=== PATIENT | female | born 1950 | race Caucasian/White ===

== ENCOUNTER 2021-09-11 22:21 | Emergency (ER) | payer OTHER ==
--- OUTSIDE RECORDS SUMMARY | 2021-09-11 22:28 | XMS REPORT | Continuity of Care Document ---
:1950 Author Organization [facility] t Address [facility] [place] [address] Care Team Providers Name Role Phone FAY ACUÑA Primary Care Physician Unavailable BRODY NORWOOD Attending Clinician Unavailable Yulia Christensen Attending Clinician Lab, Fam Pob I Attending Clinician Unavailable Valeriano BRYANT Attending Clinician VALERIANO Attending Clinician Unavailable Mateusz JACKSON Attending Clinician Unavailable Louise P[employer]IC [employer] FABRICATOR TRIMMER, G Attending Clinician Doctor Unassigned, Name Attending Clinician Unavailable Brody Norwood MD Attending Clinician Only, Test Attending Clinician Unavailable Pob, Lab Main Attending Clinician Unavailable Herminio Reese Attending Clinician Hannah YODER Attending Clinician Attending Clinician Unavailable Singer HEADLEY Attending Clinician BRODY NORWOOD Admitting Clinician Unavailable Brody Norwood MD Admitting Clinician Hannah YODER Admitting Clinician Admitting Clinician Unavailable Payers Payer Name Policy Type Policy Number Effective Date Expiration Date S ource CHOICE CARE [id number] 2019 00:00:00 Problems Condition Condition Condition Status Onset Resolution Last Treating Co mments Source Name Details Category Date Date Treatment Clinician Date Small Small Disease Active Univers bowel bowel 3-11 ity of [place] 00 Medical Branch Pneumonia Pneumonia Disease Active Uni vers 3-11 ity of 00:00: [place] 00 Medical Branch No known No known Disease Unive rs active active ity of problems problems [facility] Allergies, Adverse Reactions, Alerts Allergy Allergy Status Severity Reaction(s) Onset Inactive Treating Comm ents Source Name Type Date Date Clinician DAIRY DRUG Active N/V Univers DIGESTAN 3-11 ity of T 00:00: [place] 00 Medical Branch Dairy Propensi Active Nausea Univers Digestan ty to and/or 3-11 ity of t adverse Vomiting 00:00: [place] reaction 00 Medical s Branch Amoxicil Propensi Active Diarrhea 2016-10 Univ ers abel-Pot ty to 0-06 ity of Clavulan adverse 00:00: [place] ate reaction Medical s Branch AMOXICIL DRUG Active Diarrhea 2016-10 Univer s ABEL-POT 0-06 ity of CLAVULAN 00:00: [place] ATE 00 [facility] NO KNOWN Drug Active Univers ALLERGIE Class ity of S [facility] Social History Social Habit Start Date Stop Date Quantity Comments Source Exposure to Not sure [facility] SARS-CoV-2 [facility] (event) [place] Tobacco Comment currently Universit y of quitting [facility] Tobacco use and 2020-11-13 2020-11-13 Never used Universit y of exposure 00:00:00 00:00:00 [facility] Alcohol intake 2020-11-13 2020-11-13 Current University of 00:00:00 00:00:00 non-drinker of [facility] alcohol (finding) [place] Sex Ass[birth year] At [birth year] Universit y of 00:00:00 00:00:00 [facility] Smoking Status Start Date Stop Date Source Current every day smoker 2020-11-13 00:00:00 Uni versity [facility] Medications Ordered Filled Start Stop Current Ordering Indication Dosage Frequency Signature Comments Components Source Medication Medication Date Date Medication? Clinician (SIG) Name Name permethrin Yes [id number] Cover body Univers 5 % cream 7-05 with cream ity of 00:00: scalp to [place] 00 feet. Medical Leave on [place] for 12 hours, then rinse. mupirocin 2 Yes [id number] Apply to Univers % ointment 7-05 area(s) 3 ity of 00:00: (three) [place] 00 times Medical daily. Branch cephALEXin 2020-0 2020- No [id number] 500mg Take 1 Univers (KEFLEX) 04-19 07-16 capsule by ity of 500 mg 00:00: 04:59 mouth 3 [place] capsule 00 :00 (three) Medical times Branch daily for 10 days. venlafaxine 2020-0 Yes 100mg Take 100 U nivers 100 mg 9-24 mg by ity of tablet 17:11: mouth [place] 54 daily. Medical Branch tiZANidine 2020-0 Yes 4mg Take 4 mg Un alfredo 4 mg tablet 9-24 by mouth ity of 17:11: every 8 [place] 54 (eight) Medical hours as Branch needed for Pain (scale 4-6). HYDROcodone 2020-0 Yes 1{tbl} Take 1 Un alfredo -acetaminop 9-24 tablet by ity of hen 10-325 17:11: mouth [place] mg tablet 54 every 6 Medical (six) Branch hours as needed. gabapentin 2020-0 Yes 1200mg Take 1,200 Univers 300 mg 9-24 mg by ity of capsule 17:11: mouth 3 [place] 54 (three) Medical times Branch daily as needed. amitriptyli 2020-0 Yes 100mg Take 100 U nivers ne 100 mg 9-24 mg by ity of tablet 17:11: mouth at [place] [address] bedtime. Medical Branch zaleplon 5 2020-0 Yes 10mg Take 10 mg U nivers mg capsule 9-24 by mouth ity o f 17:11: at [place] [address] bedtime. Medical Branch chlordiazeP 2020-0 Yes 20mg Take 20 mg Univers OXIDE 10 mg 9-24 by mouth ity of capsule 17:11: [place]. [place] 54 [place] venlafaxine 2020-0 Yes 100mg Take 100 U nivers 100 mg 9-24 mg by ity of tablet 17:11: mouth [place] 54 daily. Medical Branch tiZANidine 2020-0 Yes 4mg Take 4 mg Un alfredo 4 mg tablet 9-24 by mouth ity of 17:11: every 8 [place] 54 (eight) Medical hours as Branch needed for Pain (scale 4-6). HYDROcodone 2020-0 Yes 1{tbl} Take 1 Un alfredo -acetaminop 9-24 tablet by ity of hen 10-325 17:11: mouth [place] mg tablet 54 every 6 Medical (six) Branch hours as needed. gabapentin 2020-0 Yes 1200mg Take 1,200 Univers 300 mg 9-24 mg by ity of capsule 17:11: mouth 3 [place] 54 (three) Medical times Branch daily as needed. amitriptyli 2020-0 Yes 100mg Take 100 U nivers ne 100 mg 9-24 mg by ity of tablet 17:11: mouth at [place] 54 bedtime. Medical Branch zaleplon 5 2020-0 Yes 10mg Take 10 mg U nivers mg capsule 9-24 by mouth ity o f 17:11: at [place] 54 bedtime. Medical Branch chlordiazeP 2020-0 Yes 20mg Take 20 mg Univers OXIDE 10 mg 9-24 by mouth ity of capsule 17:11: as needed. [place] [address] Medical Branch venlafaxine 2020-0 Yes 100mg Take 100 U nivers 100 mg 9-24 mg by ity of tablet 17:11: mouth [place] 54 daily. Medical Branch tiZANidine 2020-0 Yes 4mg Take 4 mg Un alfredo 4 mg tablet 9-24 by mouth ity of 17:11: every 8 [place] 54 (eight) Medical hours as Branch needed for Pain (scale 4-6). HYDROcodone 2020-0 Yes 1{tbl} Take 1 Un alfredo -acetaminop 9-24 tablet by ity of hen 10-325 17:11: mouth [place] mg tablet 54 every 6 Medical (six) Branch hours as needed. gabapentin 2020-0 Yes 1200mg Take 1,200 Univers 300 mg 9-24 mg by ity of capsule 17:11: mouth 3 [place] 54 (three) Medical times Branch daily as needed. amitriptyli 2020-0 Yes 100mg Take 100 U nivers ne 100 mg 9-24 mg by ity of tablet 17:11: mouth at [place] 54 bedtime. Medical Branch zaleplon 5 2020-0 Yes 10mg Take 10 mg U nivers mg capsule 9-24 by mouth ity o f 17:11: at [place] 54 bedtime. Medical Branch chlordiazeP 2020-0 Yes 20mg Take 20 mg Univers OXIDE 10 mg 9-24 by mouth ity of capsule 17:11: as needed. [place] [address] Medical Branch venlafaxine 2020-0 Yes 100mg Take 100 U nivers 100 mg 9-24 mg by ity of tablet 17:11: mouth [place] 54 daily. Medical Branch tiZANidine 2020-0 Yes 4mg Take 4 mg Un alfredo 4 mg tablet 9-24 by mouth ity of 17:11: every 8 [place] 54 (eight) Medical hours as Branch needed for Pain (scale 4-6). HYDROcodone 2020-0 Yes 1{tbl} Take 1 Un alfredo -acetaminop 9-24 tablet by ity of hen 10-325 17:11: mouth [place] mg tablet 54 every 6 Medical (six) Branch hours as needed. gabapentin 2020-0 Yes 1200mg Take 1,200 Univers 300 mg 9-24 mg by ity of capsule 17:11: mouth 3 [place] 54 (three) Medical times Branch daily as needed. amitriptyli 2020-0 Yes 100mg Take 100 U nivers ne 100 mg 9-24 mg by ity of tablet 17:11: mouth at [place] [address] bedtime. Medical Branch zaleplon 5 2020-0 Yes 10mg Take 10 mg U nivers mg capsule 9-24 by mouth ity o f 17:11: at [place] [address] bedtime. Medical Branch chlordiazeP 2020-0 Yes 20mg Take 20 mg Univers OXIDE 10 mg 9-24 by mouth ity of capsule 17:11: as needed. [facility] 54 Medical Branch venlafaxine 2020-0 Yes 100mg Take 100 U nivers 100 mg 9-24 mg by ity of tablet 17:11: mouth [place] 54 daily. Medical Branch tiZANidine 2020-0 Yes 4mg Take 4 mg Un alfredo 4 mg tablet 9-24 by mouth ity of 17:11: every 8 [place] [address] (eight) Medical hours as Branch needed for Pain (scale 4-6). HYDROcodone 2020-0 Yes 1{tbl} Take 1 Un alfredo -acetaminop 9-24 tablet by ity of hen 10-325 17:11: mouth [place] mg tablet 54 every 6 Medical (six) Branch hours as needed. gabapentin 2020-0 Yes 1200mg Take 1,200 Univers 300 mg 9-24 mg by ity of capsule 17:11: mouth 3 [place] 54 (three) Medical times Branch daily as needed. amitriptyli 2020-0 Yes 100mg Take 100 U nivers ne 100 mg 9-24 mg by ity of tablet 17:11: mouth at [place] [address] bedtime. Medical Branch zaleplon 5 2020-0 Yes 10mg Take 10 mg U nivers mg capsule 9-24 by mouth ity o f 17:11: at [place] [address] bedtime. Medical Branch chlordiazeP 2020-0 Yes 20mg Take 20 mg Univers OXIDE 10 mg 9-24 by mouth ity of capsule 17:11: as needed. [address] Branch venlafaxine 2020-0 Yes 100mg Take 100 U nivers 100 mg 9-24 mg by ity of tablet 17:11: mouth [place] 54 daily. Medical Branch tiZANidine 2020-0 Yes 4mg Take 4 mg Un alfredo 4 mg tablet 9-24 by mouth ity of 17:11: every 8 [place] 54 (eight) Medical hours as Branch needed for Pain (scale 4-6). HYDROcodone 2020-0 Yes 1{tbl} Take 1 Un alfredo -acetaminop 9-24 tablet by ity of hen 10-325 17:11: mouth [place] mg tablet 54 every 6 Medical (six) Branch hours as needed. gabapentin 2020-0 Yes 1200mg Take 1,200 Univers 300 mg 9-24 mg by ity of capsule 17:11: mouth 3 [place] 54 (three) Medical times Branch daily as needed. amitriptyli 2020-0 Yes 100mg Take 100 U nivers ne 100 mg 9-24 mg by ity of tablet 17:11: mouth at [place] 54 bedtime. Medical Branch zaleplon 5 2020-0 Yes 10mg Take 10 mg U nivers mg capsule 9-24 by mouth ity o f 17:11: at [place] [address] bedtime. Medical Branch chlordiazeP 2020-0 Yes 20mg Take 20 mg Univers OXIDE 10 mg 9-24 by mouth ity of capsule 17:11: as needed. [address] Branch dexamethaso 2020-0 Yes PRN, Univer s ne 9-24 Starting ity of (DECADRON 16:40: Ilene [place] PHOSPHATE) 00 07/09/20 at Med ical injection 1140, Branch Until Discontinu ed, Routine, Intra-op DUOVISC 2020-0 Yes PRN, Univers (DUOVISC 9-24 Starting ity of VISCO 16:39: Ilene [place] ELASTIC) 3 00 07/09/20 at Med ical %-4 %(0.5 1139, Branch mL) 1 % Until (0.55 mL) Discontinu intraocular ed, injection Routine, Intra-op EPINEPHrine 2020-0 Yes PRN, Univer s (PF) 07-09 Starting ity of 1:1,000 (1 16:25: Ilene [place] mg/mL) 00 07/09/20 at [facility] (ADRENALIN 1125, Branch (PF)) Until injection Discontinu ed, Routine, Intra-op ceFAZolin 2020-0 Yes PRN, Univers (ANCEF) 07-09 Starting ity of injection 16:05: Ilene [place] 07/09/20 at [facility] 1105, Branch Until Discontinu ed, MALISSA, Intra-op balanced 2020-0 Yes PRN, Univers salt soln 07-09 Starting ity of no.2 irrig. 16:04: Ilene [place] (BSS) 07/09/20 at [facility] ophthalmic 1104, [place] solution Until Discontinu ed, Routine, Intra-op mydriatic 2020-0 2020- No .5mL 0.5 mL, Univ ers #5 07-09 Left Eye, ity of ophthalmic 15:00: 14:52 ONCE, 1 [place] as solution 00 :00 dose, [place]ene Medica l 0.5 mL 07/09/20 at [place] syringe 1000, Routine lactated 2020-0 2020- No 1000mL at 20 Unive rs ringers IV 07-09 mL/hr, ity of infusion 15:00: 14:52 1,000 mL, Oleg[place] as 1,000 mL 00 :00 IV Medical Infusion, [place] ONCE, 1 dose, Ilene 07/09/20 at 1000, Routine, DSU Pre-op venlafaxine 2020-0 Yes 100mg Take 100 U nivers 100 mg 9-22 mg by ity of tablet 20:05: mouth [place] 23 daily. Medical Branch tiZANidine 2020-0 Yes 4mg Take 4 mg Un alfredo 4 mg tablet 9-22 by mouth ity of 20:05: every 8 [place] 23 (eight) Medical hours as Branch needed for Pain (scale 4-6). HYDROcodone 2020-0 Yes 1{tbl} Take 1 Un alfredo -acetaminop 9-22 tablet by ity of hen 10-325 20:05: mouth [place] mg tablet 23 every 6 Medical (six) Branch hours as needed. gabapentin 2020-0 Yes 1200mg Take 1,200 Univers 300 mg 9-22 mg by ity of capsule 20:05: mouth 3 [place] 23 (three) Medical times Branch daily as needed. amitriptyli 2020-0 Yes 100mg Take 100 U nivers ne 100 mg 9-22 mg by ity of tablet 20:05: mouth at [place] [address] bedtime. Medical Branch zaleplon 5 2020-0 Yes 10mg Take 10 mg U nivers mg capsule 9-22 by mouth ity o f 20:05: at [place] [address] bedtime. Medical Branch chlordiazeP 2020-0 Yes 20mg Take 20 mg Univers OXIDE 10 mg 9-22 by mouth ity of capsule 20:05: as needed. [address] Branch venlafaxine 2020-0 Yes 100mg Take 100 U nivers 100 mg 9-10 mg by ity of tablet 17:29: mouth [place] [address] daily. Medical Branch tiZANidine 2020-0 Yes 4mg Take 4 mg Un alfredo 4 mg tablet 9-10 by mouth ity of 17:29: every 8 [place] [address] (eight) Medical hours as Branch needed for Pain (scale 4-6). HYDROcodone 2020-0 Yes 1{tbl} Take 1 Un alfredo -acetaminop 9-10 tablet by ity of hen 10-325 17:29: mouth [place] mg tablet 11 every 6 Medical (six) Branch hours as needed. gabapentin 2020-0 Yes 1200mg Take 1,200 Univers 300 mg 9-10 mg by ity of capsule 17:29: mouth 3 [place] 11 (three) Medical times Branch daily as needed. amitriptyli 2020-0 Yes 100mg Take 100 U nivers ne 100 mg 9-10 mg by ity of tablet 17:29: mouth at [place] [address] bedtime. Medical Branch zaleplon 5 2020-0 Yes 10mg Take 10 mg U nivers mg capsule 9-10 by mouth ity o f 17:29: at [place] [address] bedtime. Medical Branch chlordiazeP 2020-0 Yes 20mg Take 20 mg Univers OXIDE 10 mg 9-10 by mouth ity of capsule 17:29: as needed. [address] Branch eye block 2020-0 Yes PRN, Univers syringe 11 9-10 Starting ity o f mL 16:33: Ilene [place] 00 06/25/20 at [place] [id number], Branch Until Discontinu ed, Intra-op tetracaine 2020-0 Yes PRN, Univers (PONTOCAINE 06-25 Starting ity of ) 0.5 % 16:03: Ilene [place] ophthalmic 06/25/20 at Med ical drops 1103, Branch Until Discontinu ed, Routine, Intra-op water for 2020-0 Yes PRN, Univers irrigation 06-25 Starting ity o f irrigation 16:03: Ilene [place] solution 06/25/20 at Medic al 1103, Branch Until Discontinu ed, Routine, Intra-op NaCl 0.9% 2020-0 Yes PRN, Univers (NS) - Starting ity of injection 16:03: Ilene [place] 06/25/20 at Medical 1103, Branch Until Discontinu ed, Routine, Intra-op neomycin-po 2020-0 Yes PRN, Univer s lymyxin-dex 06-25 Starting ity of amethasone 16:03: Ilene [place] (MAXITROL) 06/25/20 at [facility] ical 3.5 1103, Branch mg/g-10,000 Until unit/g-0.1 Discontinu % ed, ophthalmic Routine, ointment Intra-op gentamicin 2020-0 Yes PRN, Univers injection 06-25 Starting ity of 16:02: Ilene [place] 06/25/20 at [facility] 1102, Branch Until Discontinu ed, MALISSA, Intra-op EPINEPHrine 2020-0 Yes PRN, Univer s (PF) - Starting ity of 1:1,000 (1 16:02: Ilene [place] mg/mL) 06/25/20 at [facility] (ADRENALIN 1102, Branch (PF)) Until injection Discontinu ed, Routine, Intra-op DUOVISC 2020-0 Yes PRN, Univers (DUOVISC 06-25 Starting ity of VISCO 16:02: Ilene [place] ELASTIC) 3 06/25/20 at [facility] ica %-4 %(0.5 1102, Branch mL) 1 % Until (0.55 mL) Discontinu intraocular ed, injection Routine, Intra-op dexamethaso 2020-0 Yes PRN, Univer s ne 06-25 Starting ity of (DECADRON 16:02: Ilene [place] PHOSPHATE) 06/25/20 at [facility] ical injection 1102, Branch Until Discontinu ed, Routine, Intra-op ceFAZolin 2020-0 Yes PRN, Univers (ANCEF) 9-10 Starting ity of injection 16:02: Ilene [place] 00 06/25/20 at Medical 1102, Branch Until Discontinu ed, MALISSA, Intra-op balanced 2020-0 Yes PRN, Univers salt soln 9-10 Starting ity of no.2 irrig. 16:01: Ilene [place] (BSS) 00 06/25/20 at [facility] ophthalmic 1101, Branch solution Until Discontinu ed, Routine, Intra-op mydriatic 2020-0 2020- No .5mL 0.5 mL, Univ ers #5 06-2510 Right Eye, ity of ophthalmic 15:15: 15:07 ONCE, 1 [place] solution 00 :00 dose, [place] Medica l 0.5 mL 06/25/20 at [place] syringe 1015, Routine lactated 2020-0 2020- No 1000mL at 20 Unive rs ringers IV 06-25 09-10 mL/hr, ity of infusion 15:15: 15:07 1,000 mL, [place] as 1,000 mL 00 :00 IV Medical Infusion, [place] ONCE, 1 dose, [place] 06/25/20 at 1015, Routine, DSU Pre-op chlordiazeP 2020-0 Yes 20mg Take 20 mg Univers OXIDE 10 mg 9-08 by mouth ity of capsule 20:14: [place]. [place] Branch venlafaxine 2020-0 Yes 100mg Take 100 U nivers 100 mg 9-08 mg by ity of tablet 20:03: mouth [place] 09 daily. Medical Branch tiZANidine 2020-0 Yes 4mg Take 4 mg Un alfredo 4 mg tablet 9-08 by mouth ity of 20:03: every 8 [place] 08 (eight) Medical hours as Branch needed for Pain (scale 4-6). HYDROcodone 2020-0 Yes 1{tbl} Take 1 Un alfredo -acetaminop 9-08 tablet by ity of hen 10-325 20:03: mouth [place] mg tablet 08 every 6 Medical (six) Branch hours as needed. gabapentin 2020-0 Yes 1200mg Take 1,200 Univers 300 mg 9-08 mg by ity of capsule 20:03: mouth 3 [place] 08 (three) Medical times Branch daily as needed. amitriptyli 2020-0 Yes 100mg Take 100 U nivers ne 100 mg 9-08 mg by ity of tablet 20:03: mouth at [place] 08 bedtime. Medical Branch zaleplon 5 2020-0 Yes 10mg Take 10 mg U nivers mg capsule 9-08 by mouth ity o f 20:03: at [place] 08 bedtime. Medical Branch enoxaparin 2020-0 Yes 40mg 40 mg, Unive rs (LOVENOX) 3-12 Subcutaneo ity of injection 14:00: [place], DAILY, [place] 40 mg 00 First dose Medical on [place] Branch 12/26/19 at 0900, Until Discontinu ed, Routine cefTRIAXone 2020-0 Yes 1000mg 1,000 mg, Univers (ROCEPHIN) 3-12 IV ity of 1,000 mg in 11:11: Piggyback, [place] NaCl 0.9% 00 Q12H ABX, Medic al (NS) 50 mL First dose Bra [facility] MINI-BAG on Ilene 12/26/19 at 0615, Until Discontinu ed, 50 mL
R wesly for Anti-Infec tive: Empiric Therapy for Suspected Infection< br>Empiric Therapy Site: Urine
D uration of therapy: 72 hours venlafaxine 2020-0 Yes 100mg Take 100 U nivers 100 mg 3-12 mg by ity of tablet 05:30: mouth 3 [place] [address] (three) Medical times Branch daily. tiZANidine 2020-0 Yes 4mg Take 4 mg Un alfredo 4 mg tablet 3-12 by mouth ity of 05:30: every 8 [place] [address] (eight) Medical hours as Branch needed for Pain (scale 4-6). HYDROcodone 2020-0 Yes 1{tbl} Take 1 Un alfredo -acetaminop 3-12 tablet by ity of hen 10-325 05:30: mouth [place] mg tablet 43 every 6 Medical (six) Branch hours as needed. gabapentin 2020-0 Yes 300mg Take 300 Un alfredo 300 mg 3-12 mg by ity of capsule 05:30: mouth 3 [place] 43 (three) Medical times Branch daily as needed. amitriptyli 2020-0 Yes 100mg Take 100 U nivers ne 100 mg 3-12 mg by ity of tablet 05:30: mouth at [place] [address] bedtime. Medical Branch zaleplon 5 2020-0 Yes 10mg Take 10 mg U nivers mg capsule 3-12 by mouth ity o f 05:30: at [place] [address] bedtime. Medical Branch venlafaxine 2020-0 Yes 100mg Take 100 U nivers 100 mg 3-12 mg by ity of tablet 05:30: mouth 3 [place] 43 (three) Medical times Branch daily. tiZANidine 2020-0 Yes 4mg Take 4 mg Un alfredo 4 mg tablet 3-12 by mouth ity of 05:30: every 8 [place] 43 (eight) Medical hours as Branch needed for Pain (scale 4-6). HYDROcodone 2020-0 Yes 1{tbl} Take 1 Un alfredo -acetaminop 3-12 tablet by ity of hen 10-325 05:30: mouth [place] mg tablet 43 every 6 Medical (six) Branch hours as needed. gabapentin 2020-0 Yes 300mg Take 300 Un alfredo 300 mg 3-12 mg by ity of capsule 05:30: mouth 3 [place] 43 (three) Medical times Branch daily as needed. amitriptyli 2020-0 Yes 100mg Take 100 U nivers ne 100 mg 3-12 mg by ity of tablet 05:30: mouth at [place] [address] bedtime. Medical Branch zaleplon 5 2020-0 Yes 10mg Take 10 mg U nivers mg capsule 3-12 by mouth ity o f 05:30: at [place] [address] bedtime. Medical Branch venlafaxine 2020-0 Yes 100mg Take 100 U nivers 100 mg 3-12 mg by ity of tablet 05:30: mouth 3 [place] 43 (three) Medical times Branch daily. tiZANidine 2020-0 Yes 4mg Take 4 mg Un alfredo 4 mg tablet 3-12 by mouth ity of 05:30: every 8 [place] [address] (eight) Medical hours as Branch needed for Pain (scale 4-6). HYDROcodone 2020-0 Yes 1{tbl} Take 1 Un alfredo -acetaminop 3-12 tablet by ity of hen 10-325 05:30: mouth [place] mg tablet 43 every 6 Medical (six) Branch hours as needed. gabapentin 2020-0 Yes 300mg Take 300 Un alfredo 300 mg 3-12 mg by ity of capsule 05:30: mouth 3 [place] 43 (three) Medical times Branch daily as needed. amitriptyli 2020-0 Yes 100mg Take 100 U nivers ne 100 mg 3-12 mg by ity of tablet 05:30: mouth at [place] [address] bedtime. Medical Branch zaleplon 5 2020-0 Yes 10mg Take 10 mg U nivers mg capsule 3-12 by mouth ity o f 05:30: at [place] [address] bedtime. Medical Branch D5W 0.45% 2020-0 Yes 1000mL at 100 Univ ers NaCl 3-12 mL/hr, ity of (1/2NS) IV 04:45: 1,000 mL, [place] infusion 00 IV Medical 1,000 mL Infusion, Branch CONTINUOUS , Starting Mon12/25/19 at 2345, Until Discontinu ed, Routine pantoprazol 2020-0 Yes 40mg 40 mg, IV U nivers e 3-12 Piggyback, ity of (PROTONIX) 03:30: Q12H, [place] 40 mg in 00 First dose Medic al NaCl 0.9% on Mon Branch (NS) 100 mL 12/25/19 at MINI-BAG 2230, Until Discontinu ed, 100 mL haloperidol 2019-0 Yes 2.5mg 2.5 mg, Un alfredo lactate 312 Slow IV ity of (HALDOL) 03:28: Push, [place] injection 03 QHSPRN, Medical 2.5 mg Starting Branch Mon12/25/19 at 2228, Until Discontinu ed, Routine, sleep azithromyci 2019-0 Yes 500mg 500 mg, IV Univers n 3-12 Piggyback, ity of (ZITHROMAX) 00:15: Q24H ABX, [place] 500 mg in 00 First dose Medi derrick NaCl 0.9% on Mon Branch (NS) 250 mL 12/25/19 at VIAL-MATE 1915, IV Until piggyback Discontinu ed, 250 mL
R wesly for Anti-Infec tive: Empiric Therapy for Suspected Infection< br>Empiric Therapy Site: Respirator y
Durat ion of therapy: 7 days cefTRIAXone 2020-0 2020- No 1000mg 1,000 mg, Univers (ROCEPHIN) 12 -12 IV ity of 1,000 mg in 00:15: 03:36 Piggyback, [place] NaCl 0.9% 00 :48 Q24H ABX, Medic al (NS) 50 mL First dose Bra nch MINI-BAG on Mon20 at 1915, Until Discontinu ed, 50 mL
R wesly for Anti-Infec tive: Empiric Therapy for Suspected Infection< br>Empiric Therapy Site: Urine
D uration of therapy: 72 hours NaCl 0.45% 2020- No 1000mL at 100 Un alfredo (1/2NS) IV 12-2412 mL/hr, ity of infusion 23:45: 03:37 1,000 mL, [place] as 1,000 mL 00 :05 IV Medical Infusion, Branch CONTINUOUS , Starting [facility] 12/25/19 at 1845, Until [facility] 12/25/19 at 2237, Routine SOMA 350 MG 2020- No TID Unive rs ORAL TAB 12-24 ity of 22:44: 00:00 [place] 38 :00 [facility] VICODIN ES 2020- No TID Univer s 7.5-750 MG 12-24 ity of ORAL TAB 22:44: 00:00 [place] 38 :00 [facility] ondansetron Yes 4mg 4 mg, Slow Univers (ZOFRAN 12-24 IV Push, ity of (PF)) 22:17: [place], [place] injection 4 41 Starting Medi derrick mg [facility] 12/25/19 at 1717, Until Discontinu ed, Routine, Nausea and Vomiting (N/V) morpHINE 2019- No 2mg 2 mg, Slow Un alfredo injection 2 12-24 IV Push, ity of mg 22:17: 22:16 [place]PRNCrescent [place], [place] 34 :34 Starting Medical [facility] 12/25/19 at 1717, Until Ilene 12/26/19 at 1716, Routine, Pain (scale 7-10) LORazepam 2020- No 1mg 1 mg, Slow U nivers (ATIVAN) 12-24 IV Push, ity of injection 1 22:00: 20:58 ONCE, 1 [place] mg 00 :00 dose, [facility] Medical 12/25/19 at Branch 1700, STAT proMETHazin 0 2020- No 25mg 25 mg, IV Univers e 12-24 Piggyback, ity of (PHENERGAN) 21:00: 19:54 ONCE, 1 [place] 25 mg in 00 :00 dose, Wed Medica l NaCl 0.9% 12/25/19 at Bran ch (NS) 50 mL 1600, 50 piggyback mL iohexol 2020-0 2020- No 120mL 120 mL, Unive rs (OMNIPAQUE 12-24 Intravenou it y of 350 19:00: 18:55 s, ONCE, 1 [place] BULK-150 00 :00 dose, Wed Medica l mL) 12/25/19 at Branch injection 1400, 120 mL Routine ondansetron 0 2020- No 4mg 4 mg, Slow Univers (ZOFRAN 12-24 IV Push, ity of (PF)) 19:00: 18:30 ONCE, 1 [place] injection 4 00 :00 dose, Wed Med ical mg 12/25/19 at Branch 1400, MALISSA NaCl 0.9% 2019-0 2020- No 1000mL at 999 Uni vers (NS) bolus 12-24 mL/hr, ity of infusion 18:00: 20:48 1,000 mL, Oleg[place] as 1,000 mL 00 :00 IV Medical Infusion, Branch ONCE, 1 dose, 12/25/19 at 1300, MALISSA dexamethaso 2019-0 2020- No 10mg 10 mg, Uni vers ne 12-2310 Oral, ity of (DECADRON 17:15: 16:30 ONCE, 1 [place] PHOSPHATE) 00 :00 dose, Tue Medi derrick injection 12/24/19 at [facility] ch 10 mg 1215, Routine ondansetron Yes [id number] 4mg Take 1 Univers (ZOFRAN 6-29 tablet by ity of ODT) 4 mg 00:00: mouth [place] disintegrat 00 every 8 Medic al ing tablet (eight) Branch hours as needed for Nausea and Vomiting (N/V). ondansetron Yes [id number] 4mg Take 1 Univers (ZOFRAN 6-29 tablet by ity of ODT) 4 mg 00:00: mouth [place] disintegrat 00 every 8 Medic al ing tablet (eight) Branch hours as needed for Nausea and Vomiting (N/V). ondansetron Yes [id number] 4mg Take 1 Univers (ZOFRAN 6-29 tablet by ity of ODT) 4 mg 00:00: mouth [place] disintegrat 00 every 8 Medic al ing tablet (eight) Branch hours as needed for Nausea and Vomiting (N/V). ondansetron 2019-0 Yes [id number] 4mg Take 1 Univers (ZOFRAN 6-29 tablet by ity of ODT) 4 mg 00:00: mouth [place] disintegrat 00 every 8 Medic al ing tablet (eight) Branch hours as needed for Nausea and Vomiting (N/V). ondansetron 2018-0 2020- No [id number] 4mg Take 1 Univers (ZOFRAN 6-29 03-11 tablet by ity of ODT) 4 mg 00:00: 00:00 mouth [place] disintegrat 00 :00 every 8 Medic al ing tablet (eight) Branch hours as needed for Nausea and Vomiting (N/V). proMETHazin 2019-0 Yes [id number] 25mg Take 1 Univers e 25 mg 2-16 tablet by ity of tablet 00:00: mouth [place] 00 every 6 Medical (six) Branch hours as needed for Nausea and Vomiting (N/V). proMETHazin 2019-0 Yes [id number] 25mg Take 1 Univers e 25 mg 2-16 tablet by ity of tablet 00:00: mouth [place] 00 every 6 Medical (six) Branch hours as needed for Nausea and Vomiting (N/V). proMETHazin 2019-0 Yes [id number] 25mg Take 1 Univers e 25 mg 2-16 tablet by ity of tablet 00:00: mouth [place] 00 every 6 Medical (six) Branch hours as needed for Nausea and Vomiting (N/V). proMETHazin 2019-0 Yes [id number] 25mg Take 1 Univers e 25 mg 2-16 tablet by ity of tablet 00:00: mouth [place] 00 every 6 Medical (six) Branch hours as needed for Nausea and Vomiting (N/V). proMETHazin 2019-0 Yes [id number] 25mg Take 1 Univers e 25 mg 2-16 tablet by ity of tablet 00:00: mouth [place] 00 every 6 Medical (six) Branch hours as needed for Nausea and Vomiting (N/V). proMETHazin 2019-0 Yes [id number] 25mg Take 1 Univers e 25 mg 2-16 tablet by ity of tablet 00:00: mouth [place] 00 every 6 Medical (six) Branch hours as needed for Nausea and Vomiting (N/V). proMETHazin 2019-0 Yes [id number] 25mg Take 1 Univers e 25 mg 2-16 tablet by ity of tablet 00:00: mouth [place] 00 every 6 Medical (six) Branch hours as needed for Nausea and Vomiting (N/V). proMETHazin 2019-0 Yes [id number] 25mg Take 1 Univers e 25 mg 2-16 tablet by ity of tablet 00:00: mouth [place] 00 every 6 Medical (six) Branch hours as needed for Nausea and Vomiting (N/V). proMETHazin 2019-0 Yes [id number] 25mg Take 1 Univers e 25 mg 2-16 tablet by ity of tablet 00:00: mouth [place] 00 every 6 Medical (six) Branch hours as needed for Nausea and Vomiting (N/V). proMETHazin 2019-0 Yes [id number] 25mg Take 1 Univers e 25 mg 2-16 tablet by ity of tablet 00:00: mouth [place] 00 every 6 Medical (six) Branch hours as needed for Nausea and Vomiting (N/V). proMETHazin 2019-0 Yes [id number] 25mg Take 1 Univers e 25 mg 2-16 tablet by ity of tablet 00:00: mouth [place] 00 every 6 Medical (six) Branch hours as needed for Nausea and Vomiting (N/V). proMETHazin 2019-0 Yes [id number] 25mg Take 1 Univers e 25 mg 2-16 tablet by ity of tablet 00:00: mouth [place] 00 every 6 Medical (six) Branch hours as needed for Nausea and Vomiting (N/V). phenazopyri 2019-0 Yes [id number] 200mg Take 1 Univers dine 200 mg 2-16 tablet by ity of tablet 00:00: mouth 3 [place] 00 (three) Medical times Branch daily. proMETHazin 2019-0 Yes [id number] 25mg Take 1 Univers e 25 mg 2-16 tablet by ity of tablet 00:00: mouth [place] 00 every 6 Medical (six) Branch hours as needed for Nausea and Vomiting (N/V). phenazopyri 2019-0 Yes [id number] 200mg Take 1 Univers dine 200 mg 2-16 tablet by ity of tablet 00:00: mouth 3 [place] 00 (three) Medical times Branch daily. proMETHazin 2019-0 Yes [id number] 25mg Take 1 Univers e 25 mg 2-16 tablet by ity of tablet 00:00: mouth [place] 00 every 6 Medical (six) Branch hours as needed for Nausea and Vomiting (N/V). phenazopyri 2019-0 Yes [id number] 200mg Take 1 Univers dine 200 mg 2-16 tablet by ity of tablet 00:00: mouth 3 [place] 00 (three) Medical times Branch daily. proMETHazin 2019-0 Yes [id number] 25mg Take 1 Univers e 25 mg 2-16 tablet by ity of tablet 00:00: mouth [place] 00 every 6 Medical (six) Branch hours as needed for Nausea and Vomiting (N/V). phenazopyri 2019-0 Yes [id number] 200mg Take 1 Univers dine 200 mg 2-16 tablet by ity of tablet 00:00: mouth 3 [place] 00 (three) Medical times Branch daily. proMETHazin 2019-0 Yes [id number] 25mg Take 1 Univers e 25 mg 2-16 tablet by ity of tablet 00:00: mouth [place] 00 every 6 Medical (six) Branch hours as needed for Nausea and Vomiting (N/V). phenazopyri 2019-0 2020- No [id number] 200mg Take 1 Univers dine 200 mg 2-16 03-11 tablet by it y of tablet 00:00: 00:00 mouth 3 [place] 00 :00 (three) Medical times Branch daily. VICODIN ES 2018-0 Yes TID Univers 7.5-750 MG 3-18 ity of ORAL TAB 06:32: [address] SOMA 350 MG 2018-0 Yes TID Univer s ORAL TAB 3-18 ity of 06:32: [address] venlafaxine 2017-0 Yes 100mg Take 100 U nivers 100 mg 3-18 mg by ity of tablet 06:32: mouth 3 [place] [address] (three) Medical times Branch daily. VICODIN ES 2018-0 Yes TID Univers 7.5-750 MG 3-18 ity of ORAL TAB 06:32: [address] Branch SOMA 350 MG 2018-0 Yes TID Univer s ORAL TAB 3-18 ity of 06:32: [address] venlafaxine 2018-0 Yes 100mg Take 100 U nivers 100 mg 3-18 mg by ity of tablet 06:32: mouth 3 [place] [address] (three) Medical times Branch daily. VICODIN ES 2018-0 Yes TID Univers 7.5-750 MG 3-18 ity of ORAL TAB 06:32: [address] SOMA 350 MG Yes TID Univer s ORAL TAB 3-18 ity of 06:32: [address] venlafaxine Yes 100mg Take 100 U nivers 100 mg 3-18 mg by ity of tablet 06:32: mouth 3 [place] [address] (three) Medical times [place] daily. VICODIN ES Yes TID Univers 7.5-750 MG 3-18 ity of ORAL TAB 06:32: [address] SOMA 350 MG Yes TID Univer s ORAL TAB 3-18 ity of 06:32: [address] venlafaxine Yes 100mg Take 100 U nivers 100 mg 3-18 mg by ity of tablet 06:32: mouth 3 [place] [address] (three) Medical times [place] daily. Immunizations Ordered Filled Immunization Date Status Comments [facility] e Immunization Name Name SARS-COV-2 COVID-19 2021-02-01 Completed Unive rsity of MODERNA VACCINE 00:00:00 [facility] SARS-COV-2 COVID-19 2021-02-01 Completed Unive rsity of MODERNA VACCINE 00:00:00 [facility] SARS-COV-2 COVID-19 2021-02-01 Completed Unive rsity of MODERNA VACCINE 00:00:00 [facility] Vital Signs Vital Name Observation Time Observation Value Comments Source Systolic blood 2021-04-19 20:07:00 125 mm[Hg] Univer sity of pressure [facility] Diastolic blood 2021-04-19 20:07:00 74 mm[Hg] Unive rsity of pressure [facility] Heart rate 2021-04-19 20:07:00 73 /min [facility] Body temperature 2021-04-19 20:07:00 36.94 Ragini [facility] Respiratory rate 2021-04-19 20:07:00 16 /min [facility] Body weight 2021-04-19 20:07:00 74.39 kg [facility] BMI 2021-04-19 20:07:00 26.47 kg/m2 [facility] Oxygen saturation in 2021-04-19 20:07:00 99 /min University of Arterial blood by [facility] derrick Pulse oximetry Branch Systolic blood 2020-11-13 05:14:00 141 mm[Hg] Univer sity of pressure [place] [facility] Diastolic blood 2020-11-13 05:14:00 51 mm[Hg] Unive rsity of pressure [place] [facility] Heart rate 2020-11-13 05:14:00 57 /min Universi ty of [place] [facility] Respiratory rate 2020-11-13 05:14:00 19 /min Univ ersity of [place] [facility] Oxygen saturation in 2020-11-13 05:14:00 97 /min University of Arterial blood by [facility] Pulse oximetry Branch Body temperature 2020-11-13 02:49:00 36.11 Ragini Univ ersity of [place] [facility] Body height 2020-11-13 02:49:00 167.6 cm Universi ty [facility] [place] [facility] Body weight 2020-11-13 02:49:00 74.39 kg Universi ty [facility] [place] [facility] BMI 2020-11-13 02:49:00 26.47 kg/m2 Universi ty [facility] [place] [facility] Systolic blood 2020-07-09 17:05:00 145 mm[Hg] Univer sity of pressure [place] [facility] Diastolic blood 2020-07-09 17:05:00 65 mm[Hg] Unive rsity of pressure [place] [facility] Heart rate 2020-07-09 17:05:00 58 /min Universi ty [facility] [place] [facility] Respiratory rate 2020-07-09 17:05:00 15 /min Univ ersity of [place] [facility] Oxygen saturation in 2020-07-09 17:05:00 96 /min University of Arterial blood by [facility] Pulse oximetry Branch Body temperature 2020-07-09 16:45:00 36.33 Ragini Univ ersity of [place] [facility] Body height 2020-07-07 20:00:00 167.6 cm Universi ty [facility] [place] [facility] Body weight 2020-07-07 20:00:00 70.308 kg Universi ty [facility] [place] [facility] BMI 2020-07-07 20:00:00 25.02 kg/m2 Universi ty [facility] [place] [facility] Systolic blood 2020-06-25 17:05:00 153 mm[Hg] Univer sity of pressure [place] [facility] Diastolic blood 2020-06-25 17:05:00 65 mm[Hg] Unive rsity of pressure [place] [facility] Heart rate 2020-06-25 17:05:00 60 /min Universi ty [facility] [place] [facility] Respiratory rate 2020-06-25 17:05:00 19 /min Univ ersity of [place] [facility] Oxygen saturation in 2020-06-25 17:05:00 97 /min University of Arterial blood by [facility] Pulse oximetry Branch Body temperature 2020-06-25 16:50:00 36.89 Ragini Univ ersity of [place] [facility] Body height 2020-06-23 20:15:00 167.6 cm Universi ty [facility] [place] [facility] Body weight 2020-06-23 20:15:00 70.761 kg Universi ty [facility] [place] [facility] BMI 2020-06-23 20:15:00 25.18 kg/m2 Universi ty [facility] [place] [facility] Systolic blood 2019-12-26 00:56:00 148 mm[Hg] Univer sity of pressure [place] [facility] Diastolic blood 2019-12-26 00:56:00 60 mm[Hg] Unive rsity of pressure [place] [facility] Heart rate 2019-12-26 00:56:00 79 /min Universi ty [facility] [place] [facility] Body temperature 2019-12-26 00:56:00 37.28 Ragini Univ ersity [facility] [place] [facility] Respiratory rate 2019-12-26 00:56:00 18 /min Univ ersity of [place] [facility] Oxygen saturation in 2019-12-26 00:56:00 97 /min University of Arterial blood by [facility] Pulse oximetry Branch Body height 2019-12-25 23:01:00 167.6 cm Universi ty [facility] [place] [facility] Body weight 2019-12-25 23:01:00 73.982 kg Universi ty [facility] [place] [facility] BMI 2019-12-25 23:01:00 26.33 kg/m2 [facility]i [facility] [place] [facility] Systolic blood 2019-12-24 14:16:00 146 mm[Hg] Univer sity of pressure [place] [facility] Diastolic blood 2019-12-24 14:16:00 74 mm[Hg] Unive rsity of pressure [place] [facility] Heart rate 2019-12-24 14:16:00 62 /min Universi ty [facility] [place] [facility] Body temperature 2019-12-24 14:16:00 36.89 Ragini Univ ersity [facility] [place] [facility] Respiratory rate 2019-12-24 14:16:00 18 /min [facility] Oxygen saturation in 2019-12-24 14:16:00 97 /min [facility] Arterial blood by [facility] Pulse oximetry [place] Body height 2019-12-24 14:06:00 167.6 cm [facility] Body weight 2019-12-24 14:06:00 73.483 kg [facility] BMI 2019-12-24 14:06:00 26.15 kg/m2 [facility] Procedures Procedure Date / Time Performing Clinician Source Performed CONSENT/REFUSAL FOR 2021-04-19 19:43:58 Doctor Unassigned, No Un iversity [facility] DIAGNOSIS AND TREATMENT [facility] Medical [place] XR CERVICAL SPINE 2 VW 2020-11-13 04:10:28 Megan Alejo [facility] XR SPINE THORACIC 2 VW 2020-11-13 04:10:28 Megan Alejo [facility] XR SHOULDER <2 VW RIGHT 2020-11-13 04:10:28 Megan Alejo [facility] CT HEAD WO CONTRAST 2020-11-13 04:09:43 Megan Alejo [facility] NOTICE OF PRIVACY 2020-11-13 02:38:03 Doctor Unassigned, No [facility] PRACTICES [facility] CONSENT/REFUSAL FOR 2020-11-13 02:33:26 Doctor Unassigned, No Un iversity of [place] DIAGNOSIS AND TREATMENT [facility] CONSENT/REFUSAL FOR 2020-07-08 15:25:55 Doctor Unassigned, No Un iversity of [place] DIAGNOSIS AND TREATMENT [facility] ASSIGNMENT OF BENEFITS 2020-07-08 15:25:34 Doctor Unassigned, No [facility] CBC WITH DIFF 2020-06-19 16:37:00 Deepak [facility] ASSIGNMENT OF BENEFITS 2020-06-19 16:22:24 Doctor Unassigned, No [facility] XR KUB 2019-12-25 23:29:25 Mohit Billings [facility] URINALYSIS 2019-12-25 20:46:00 Woo Carter [facility] [place] [facility] CT ABDOMEN PELVIS W 2019-12-25 18:52:52 Woo Carter [facility] CONTRAST Medical Branch LIPASE 2019-12-25 18:10:00 Woo Carter [facility] [place] [facility] MAGNESIUM 2019-12-25 18:10:00 Federico Mohit [facility] TROPONIN I 2019-12-25 18:10:00 Woo Carter [facility] [place] [facility] THYROID STIMULATING 2019-12-25 18:10:00 [facility] COMP. METABOLIC PANEL 2019-12-25 18:10:00 Woo Carter [facility] ([id number]) Medical Branch LIPID PANEL 2019-12-25 18:10:00 Federico [facility] ([id number])(TOTAL Medical Branch CHOLESTEROL, TRIGLYCERIDES, HDL) CBC WITH DIFFERENTIAL 2019-12-25 18:10:00 Woo Carter [facility] EKG-12 LEAD 2019-12-25 17:59:45 Woo Carter [facility] [place] [facility] CONSENT/REFUSAL FOR 2019-12-25 17:01:26 Doctor [facility]igned, [facility] Name Medical Branch CT HEAD WO CONTRAST 2019-12-24 15:28:52 Vilma Baeza [facility] COMP. METABOLIC PANEL 2019-12-24 15:06:00 Vilma [facility] ([id number]) [facility] CBC WITH DIFFERENTIAL 2019-12-24 15:06:00 Vilma Baeza [facility] URINALYSIS 2019-12-24 15:06:00 Singer [facility] o f [facility] NOTICE OF PRIVACY 2019-12-24 13:47:28 Doctor Unassigned, No [facility] PRACTICES Name [facility] Branch CONSENT/REFUSAL FOR 2019-12-24 13:47:14 [facility] Name Medical Branch ASSIGNMENT OF BENEFITS 2019-05-23 14:28:09 Doctor Unassigned, No [facility] Encounters Start End Encounter Admission Attending Care Care Encounter Source Date/Time Date/Time Type Type Clinicians Facility Department ID 2021-08-16 Emergency [facility] [id number] Univers 06:03:13 ity of [facility] 2021-08-14 Emergency [facility] [id number] Univers 20:27:24 ity of [facility] 2021-08-13 Outpatient R ENMA [facility] EVA [id number] Univers 18:08:02 DEEPAK ity [facility] 2021-08-13 Outpatient ENMA [facility] [id number] Univers 14:36:12 DEEPAK ity [facility] 2021-08-12 Emergency [facility] [id number] Univers 13:49:40 ity of [facility] 2021-04-19 2021-04-19 Emergency Umberto Rainey [facility] [id number] Univers 15:10:00 16:42:00 Yulia [place] [id number] i ty [facility] [id number] [place] [facility] [id number] [place] [id number] [place] 2021-03-30 2021-03-30 Laboratory Lab, Adc Fam Pob I [facility] 1.2. [id number] Univers 16:17:34 16:37:34 [facility] [id number] ity [facility] [id number] Olegario as Professio [id number] Ms dical [facility] 044 Branch Office [address] 2021-03-30 2021-03-30 Outpatient R [facility] [id number] Univers 16:20:00 16:20:00 [id number] ity [facility] 2021-03-30 2021-03-30 [facility] [id number] Univers 16:20:00 16:20:00 DILCIA ity [facility] 2021-03-01 2021-03-01 Outpatient [facility] [id number] Univers 09:20:00 09:20:00 ity [facility] 2021-02-01 2021-02-01 Outpatient R RENETTA [facility] [id number] Univers 09:20:00 09:20:00 INDIRA ity [facility] 2020-11-12 2020-11-12 Emergency [facility] [id number] Univers 20:58:00 23:21:00 Megan [place] [id number] ity of [place] [id number] [place] [id number] [facility] 084 Branch 2020-11-12 2020-11-12 Orders Doctor CHAGO 1.2.840.114 [id number] Univers 00:00:00 00:00:00 Only Unassigned, SUSANNA [id number] ity of [place] [facility] [id number] Olegario as [id number] [facility] 009 Branch 2020-07-09 2020-07-09 [facility] [id number] Univers 09:09:00 12:08:00 Encounter Deepak [place] [id number] ity of [place] [id number] [place] [id number] [address] 2020-07-08 2020-07-08 Laboratory Only, Adc Test [facility] 1.2.840. 114 [id number] Univers 10:22:32 10:37:32 Only Deepak [place] 350.1.1 3.10 ity of [id number] [place] [id number] [facility] 353 Branch 2020-07-08 2020-07-08 Outpatient R [facility] [id number] Univers 10:15:00 10:15:00 [id number] ity of [facility] 2020-07-08 2020-07-08 Outpatient R [facility] [id number] Univers 10:15:00 10:15:00 DEEPAK ity of [facility] 2020-06-25 2020-06-25 [facility] [id number] Univers 09:56:00 12:20:00 Encounter Deepak [place] [id number] ity of [place] [id number] [place] [id number] Med [address] 2020-06-24 2020-06-24 Outpatient R [facility] [id number] Univers 09:30:00 09:30:00 ity of [facility] 2020-06-24 2020-06-24 Laboratory Only, Adc Test [facility] 1.2.840. 114 [id number] Univers 09:11:40 09:26:40 Only Enma Deepak [place] 350.1.1 3.10 ity of [place] [id number] [place] [id number] [address] 2020-06-24 2020-06-24 Outpatient R [facility] [id number] Univers 09:00:00 09:00:00 ity of [facility] 2020-06-19 2020-06-[address] Reporter Joseluis, Adc Lab Main [facility] 1.2.8 [id number] [id number] Univers 11:23:38 11:38:38 Visit Deepak [place] 350.1.1 3.10 ity of [place] [id number] [facility] [id number] Ms dic[address] 2020-06-19 2020-06-19 Outpatient R [facility] [id number] Univers 11:15:00 11:15:00 ity of [facility] 2020-06-19 2020-06-19 Outpatient R ENMA [facility] [id number] Univers 11:15:00 11:15:00 DEEPAK ity [facility] 2020-06-19 2020-06-19 Orders Doctor ANDERS 1.2.840.114 [id number] Univers 00:00:00 00:00:00 Only Unassigned, SUSANNA [id number] ity of [place] [facility] 4.2.7.2.686 Olegario as [id number] [facility] 009 Branch 2020-06-18 2020-06-18 Outpatient R [facility] [id number] Univers 15:45:00 15:45:00 ity of [facility] 2019-12-25 2019-12-26 [facility] Woo Carter [facility] 1.2.840. 114 [id number] Univers 12:34:19 00:15:00 Encounter Micah Young [id number] ity of [place] [id number] [facility] [id number] [facility] 081 Branch 2019-12-25 2019-12-25 Orders Doctor CHAGO 1.2.840.114 [id number] Univers 00:00:00 00:00:00 Only Unassigned, SUSANNA [id number] ity of [place] [facility] 4.2.7.2.686 Olegario as [id number] [place] [address] Branch 2019-12-24 2019-12-24 Emergency X BAEZA, [facility] ERT [id number] Univers 09:08:43 12:00:00 VILMA garcia of [facility] 2019-12-24 2019-12-24 [facility] [id number] Univers 09:08:43 12:00:00 Vilma La 350.1.13.10 i ty [facility] [id number] [facility] [id number] [facility] 084 Branch 2019-12-24 2019-12-24 Orders Doctor CHAGO 1.2.840.114 [id number] Univers 00:00:00 00:00:00 Only Unassigned, SUSANNA [id number] ity of [place] [facility] 4.2.7.2.686 Olegario as [id number] [place] [address] Branch 2019-05-23 2019-05-23 Orders Doctor CHAGO 1.2.840.114 [id number] Univers 00:00:00 00:00:00 Only Unassigned, SUSANNA [id number] ity of [place] [facility] [id number] Olegario as [id number] [place] [address] Branch Results Test Test Test Results Result Source Description Time Comments Comments XR CERVICAL 2020-10- Impression: 1. Universit y of SPINE 2 VW 29 Degenerative changes.2. [place] [facility] 04:58:08 No fractures are Branch identified.3. Alignment at the cervicothoracic junction cannot be assessed due tooverlying structures. RL: 460 End of Report Ordering Physician: MAIA Vasquez DREVER History: ?Fall. Technique: Cervical spine, 2 views Comparison: Correlation is made with an MRI of the cervical spine performedOctober 16 2019. Findings: ? 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 There is mild degenerative retrolisthesis of C3. Thecervicothoracic junction is obscured by overlying structures in the lateralprojection and alignment at this level cannot be assessed. No fractures areidentified. The included portions of the lungs are clear. 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 There is mild degenerative retrolisthesis of C3. Thecervicothoracic junction is obscured by overlying structures in the lateralprojection and alignment at this level cannot be assessed. No fractures areidentified. The included portions of the lungs are clear.IMPRESSIONImpressio n:1. Degenerative changes.2. No fractures are identified.3. Alignment at the cervicothoracic junction cannot be assessed due tooverlying structures.RL: 460End of Report SHOULDER <2 2020-10- Impression: Mild Univ ersity of VW RIGHT 29 degenerative changes, Olegario as Medical 04:54:45 with no acute abnormality Branch is evident. RL: 460 End of Report Ordering Physician: MAIA ALEJO History: ?Fall. Technique: Right shoulder, 2 views Comparison: None Findings: ? No fractures are identified. There is periarticular osteophyte formation ofthe acromioclavicular and glenohumeral joints and narrowing of theacromioclavicular joint. No abnormal periarticular soft tissues areunremarkable. The right lung is clear. [facility], Radiant Results Inft User - 11/12/2020 10:55 PM CSTOrdering Physician: MEGAN Vasquez DREVERHistory: Fall.Technique: Right shoulder, 2 viewsComparison: NoneFindings: No fractures are identified. There is periarticular osteophyte formation ofthe acromioclavicular and glenohumeral joints and narrowing of theacromioclavicular joint. No abnormal periarticular soft tissues areunremarkable. The right lung is clear.IMPRESSIONImpressio n:Mild degenerative changes, with no acute abnormality is evident.RL: 460End of Report SPINE 2020-10- Impression: 1. Mild Unive rsity of THORACIC 2 VW 29 degenerative changes.2. [facility] 04:51:21 Minimal anterior wedging Branch of a thoracic vertebral body, likely T8, couldbe physiologic. Consider MRI if there is continued clinical suspicion forfracture. RL: 460 End of Report Ordering Physician: MAIA ALEJO History: ?Fall. Technique: Thoracic spine, 2 views Comparison: None Findings: ? There is mild degenerative spondylosis. There is minimal anterior wedgingof a midthoracic vertebral body, likely T8. Vertebral body heights areotherwise preserved. Vertebral alignment is within normal limits. Theincluded portions of the lungs are clear. [facility], Radiant Results Inft User - 11/12/2020 10:52 PM CSTOrdering Physician: MEGAN Vasquez DREVERHistory: Fall.Technique: Thoracic spine, 2 views Comparison: NoneFindings: There is mild degenerative spondylosis. There is minimal anterior wedgingof a midthoracic vertebral body, likely T8. Vertebral body heights areotherwise preserved. Vertebral alignment is within normal limits. Theincluded portions of the lungs are clear.IMPRESSIONImpressio n:1. Mild degenerative changes.2. Minimal anterior wedging of a thoracic vertebral body, likely T8, couldbe physiologic. Consider MRI if there is continued clinical suspicion forfracture.RL: 460End of Report HEAD WO 2020-10- No acute intracranial Un iversity of CONTRAST 29 abnormality. Preliminary [facility] 04:48:11 Report Dictated by Branch Resident: J Luis Weber MD., have reviewed this study and agree with the abovereport. EXAM: CT HEAD WITHOUT CONTRAST HISTORY: Head trauma, minor (Age >= 65y) COMPARISON: 12/24/2019 TECHNIQUE: Routine CT head without contrast. 2.5 mm slices obtained.Coronal sagittal constructions performed. FINDINGS: The ventricles and cerebral sulci are appropriate for age. Nohydrocephalus, midline shift or pathological extra-axial fluid collectionis present. The basal cisterns are unremarkable. There is no acute intracranial hemorrhage or significant mass effect. Noabnormal parenchymal attenuation abnormality. Nonspecific basal gangliacalcifications are noted. The uribe-white matter differentiation ispreserved. The mastoid air cells and paranasal air sinuses are clear. The calvariumand central skull base are unremarkable. [facility], Radiant Results Inft User - 11/12/2020 10:49 PM CSTEXAM: CT HEAD WITHOUT CONTRASTHISTORY: Head trauma, minor (Age >= 65y) COMPARISON: 12/24/2019TECHNIQUE: Routine CT head without contrast. 2.5 mm slices obtained.Coronal sagittal constructions performed.FINDINGS:The ventricles and cerebral sulci are appropriate for age. Nohydrocephalus, midline shift or pathological extra-axial fluid collectionis present. The basal cisterns are unremarkable.There is no acute intracranial hemorrhage or significant mass effect. Noabnormal parenchymal attenuation abnormality. Nonspecific basal gangliacalcifications are noted. The uribe-white matter differentiation ispreserved.The mastoid air cells and paranasal air sinuses are clear. The calvariumand central skull base are unremarkable.IMPRESSIONNo acute intracranial abnormality.Preliminary Report Dictated by Resident: J Luis Damon MD., have reviewed this study and agree with the abovereport. CBC WITH DIFF 2020-06-19 16:46:00 Test Item Value Reference Range Interpretation Comme nts WBC (test code = 6690-2) See_Comment [A utomated message] The system which XIHA nerated this result transmit marika reference range: 4.30 - 1 1.10 10*3/?L. The reference r miguel was not used to interpr et this result as normal/abnor mal. RBC (test code = 789-8) See_Comment [Au tomated message] The system which XIHA nerated this result transmit marika reference range: 3.93 - 5 .25 10*6/?L. The reference r miguel was not used to interpr et this result as normal/abnor mal. HGB (test code = 718-7) 12.5 g/dL 11.6-15 HCT (test code = 4544-3) 40.0 % 35.7-45.2 MCV (test code = 787-2) 92.6 fL 80.6-95.5 MCH (test code = 785-6) 28.9 pg 25.9-32.8 MCHC (test code = 786-4) 31.3 g/dL 31.6-35.1 L RDW-SD (test code = 04312-0) 43.9 fL 39-49.9 RDW-CV (test code = 788-0) 12.9 % 12-15.5 PLT (test code = 777-3) See_Comment [Au tomated message] The system which ge nerated this result transmit marika reference range: 166 - 35 8 10*3/?L. The reference range was not used to interpret th is result as normal/abnormal . MPV (test code = 87351-8) 9.2 fL 9.5-12.9 L NRBC/100 WBC (test code = See_Comment [ Automated message] The [id number]) system which XIHA nerated this result transmit marika reference range: 0.0 - 10 .0 /100 WBCs. The reference r miguel was not used to interpr et this result as normal/abnor mal. NRBC x10^3 (test code = <0.01 See_Comment [Au tomated message] The 5887867325) system which XIHA nerated this result transmit marika reference range: 10*3/?L. The reference range was not u sed to interpret this result as normal/abnormal . GRAN MAT (NEUT) % (test code 46.3 % = 770-8) IMM GRAN % (test code = 0.50 % 5205856114) LYMPH % (test code = 736-9) 38.2 % MONO % (test code = 5905-5) 7.8 % EOS % (test code = 713-8) 6.4 % BASO % (test code = 706-2) 0.8 % GRAN MAT x10^3(ANC) (test 3.64 10*3/uL 1.88-7.09 code = 3926173821) IMM GRAN x10^3 (test code = 0.04 10*3/uL 0-0.06 6134689326) LYMPH x10^3 (test code = 3.00 10*3/uL 1.32-3.29 731-0) MONO x10^3 (test code = 0.61 10*3/uL 0.33-0.92 742-7) EOS x10^3 (test code = 0.50 10*3/uL 0.03-0.39 H 711-2) BASO x10^3 (test code = 0.06 10*3/uL 0.01-0.07 704-7) Lab Interpretation (test Abnormal code = 78254-9) [facility] [id number] 00:22:54Nasogastric tube within the stomach. RL: 2831 Patient name: THAI HANNAH: 1950 69 years EXAMINATION: XR KUB Ordering Physician: MOHIT BILLINGS CLINICAL HISTORY:NGT placement COMPARISON:None TECHNIQUE:Multiple views of the abdomen were performed. FINDINGS:The nasogastric tube is coiled within the stomach. Dilated bowel loopspresent measuring up to 5.4 cm. No definite free on this supine radiograph.Contrast from prior CT in the right collecting system. Lung bases areclear. [facility], Radiant Results Inft User - 12/25/2019 7:24 PM CDTPatient name: THAI HANNAH: 1950 69 years EXAMINATION: XR KUBOrdering Physician: MOHIT BILLINGS CLINICAL HISTORY:NGT placement COMPARISON:NoneTECHNIQUE:Multiple views of the abdomen were performed.FINDINGS:The nasogastric tube is coiled within the stomach. Dilated bowel loopspresent measuring up to 5.4 cm. No definite free on this supine radiograph.Contrast from prior CT in the right col lecting system. Lung bases areclear.IMPRESSIONNasogastric tube within the stomach.RL: [id number] [facility]Allen[facility]yroid Stim[facility] Hormone (TSH)2019-12-25 23:45:00 Test Item Value Reference Range Interpretation Comments TSH (test code = See_Comment [Automated message] [id number]) The system [employer] generated this result transmitted ref erence range: 0.45 - 4 .70 mIU/L. The refe rence range was not u sed to interpret this result as normal/abnor mal. Lab Interpretation (test Normal code = 79980-6) [facility]AllenMagnesium [id number] 23:24:00 Test Item Value Reference Range Interpretation Comments MAGNESIUM (test code = 1.8 mg/dL 1.7-2.4 Sligh t hemolysis 3079065694) Lab Interpretation (test Normal code = 12636-9) [facility] (Total Cholesterol, Triglycerides, HDL)2019-12-25 23:14:00 Test Item Value Reference Range Interpretation Comments CHOL (test code = 194 mg/dL 120-200 3533974539) HDL (test code = 51 mg/dL >50 4775738398) HDLC RATIO (test code = See_Comment [Au tomated message] 6857670564) The system [employer] generated this result transmit marika reference range : <=4.5. The refe rence range was not u sed to interpret th is result as normal/abnormal . TRIG (test code = 115 mg/dL 30-170 7495455878) LDL CHOL (test code = 120 mg/dL See_Comment [Auto mated message] 49094-9) The system [employer] generated this result transmit marika reference range : <=160. The refe rence range was not u sed to interpret th is result as normal/abnormal . VLDL (test code = 23 mg/dL 5-60 7108244386) Lab Interpretation (test Normal code = 22824-8) [facility]inalysis2020-[facility]-11 21:17:00 Test Item Value Reference Range Interpretation Comments APPEARANCE (test code = Clear Clear 4635271645) COLOR (test code = Yellow Yellow 4169684482) PH (test code = 4.8-8.0 9472175261) SP GRAVITY (test code = <=1.005 1.003-1.030 0442815382) GLU U QUAL (test code = Negative Negative 8433448509) BLOOD (test code = Trace Negative A 5916871047) KETONES (test code = Negative Negative 8237907451) PROTEIN (test code = Negative Negative 2887-8) UROBILIN (test code = 0.2 mg/dL See_Comment [Auto mated message] 6283076472) The system [employer] generated this result transmit marika reference range : 0-1.0 mg/dL. Th e reference range was not used to interpret this result as normal/abnormal . BILIRUBIN (test code = Negative Negative 2708041806) NITRITE (test code = Positive Negative A 4475459593) LEUK SAMUEL (test code = Negative Negative 2722619743) RBC/HPF (test code = See_Comment H [Autom ated message] 0366750871) The system [employer] generated this result transmit marika reference range : 0 - 3 HPF. The refe rence range was not u sed to interpret th is result as normal/abnormal . WBC/HPF (test code = See_Comment [Autom ated message] 9340916162) The system [employer] generated this result transmit marika reference range : 0 - 5 HPF. The refe rence range was not u sed to interpret th is result as normal/abnormal . BACTERIA (test code = Few Negative A 7411995249) Lab Interpretation (test Abnormal code = 42660-6) [facility] WITH [id number] 19:14:00 Test Item Value Reference Range Interpretation Comments WBC (test code = See_Comment [Automated 6690-2) message] The sy stem which generated this result transmitted reference range : 4.30 - 11.10 10*3/?L. The reference range was not used to interpret this result as normal/abnormal . RBC (test code = See_Comment [Automated 139-8) message] The sy stem which generated this result transmitted reference range : 3.93 - 5.25 10*6/?L. The reference range was not used to interpret this result as normal/abnormal . HGB (test code = 13.8 g/dL 11.6-15 718-7) HCT (test code = 43.3 % 35.7-45.2 4544-3) MCV (test code = 89.6 fL 80.6-95.5 787-2) MCH (test code = 28.6 pg 25.9-32.8 785-6) MCHC (test code = 31.9 g/dL 31.6-35.1 786-4) RDW-SD (test code = 43.2 fL 39-49.9 29107-0) RDW-CV (test code = 13.1 % 12-15.5 788-0) PLT (test code = See_Comment [Automated 777-3) message] The sy stem which generated this result transmitted reference range : 166 - 358 10*3/ ?L. The reference r miguel was not used to interpret this result as normal/abnormal . MPV (test code = 10.0 fL 9.5-12.9 20263-8) NRBC/100 WBC (test See_Comment [Automat ed code = 9044891987) message] The system which generated this result transmitted reference range : 0.0 - 10.0 /100 WBCs. The refer ence range was not u sed to interpret th is result as normal/abnormal . NRBC x10^3 (test code <0.01 See_Comment [Auto mated = 4203531040) message] The s ystem which generated this result transmitted reference range : 10*3/?L. The reference range was not used to interpret this result as normal/abnormal . GRAN MAT (NEUT) % 78.8 % (test code = 770-8) IMM GRAN % (test code 0.30 % = 6973944620) LYMPH % (test code = 8.6 % 736-9) MONO % (test code = 12.1 % 5905-5) EOS % (test code = 0.1 % 713-8) BASO % (test code = 0.1 % 706-2) GRAN MAT x10^3(ANC) 7.96 10*3/uL 1.88-7.09 H (test code = 0499056509) IMM GRAN x10^3 (test 0.03 10*3/uL 0-0.06 code = 7994028684) LYMPH x10^3 (test code 0.87 10*3/uL 1.32-3.29 L = 731-0) MONO x10^3 (test code 1.22 10*3/uL 0.33-0.92 H = 742-7) EOS x10^3 (test code = <0.03 0.03-0.39 L 711-2) BASO x10^3 (test code <0.03 0.01-0.07 = 704-7) Lab Interpretation Abnormal (test code = 97237-3) [facility] W [id number] 19:07:49CT Abdomen and Pelvis with intravenous contrast. CLINICAL HISTORY: Abdominal generalized pain with nausea and vomiting. DOSE: Up-to-date CT equipment and radiation dose reduction techniques wereemployed. CTDIvol: 8.78 mGy. DLP: 437 mGy-cm. TECHNIQUE : Contiguous axial imaging from the level of the lung basesthrough the pubic symphysis were performed after the uncomplicatedadministration of Omnipaquecontrast material. ?Coronal and sagittalreconstructions were obtained. Auto mA and/or iterative reconstruction wereused to reduce radiation dose. FINDINGS: ? Lower lungs: Focal congestion with possiblydeveloping pneumonia noted inthe posteromedial right lower lung. No pleural effusion or pericardialeffusion. No hiatal hernia Liver, Gallbladder and Spleen: Liver is 15.7 cm in length and spleenmeasures approximately 9.5 x 4 cm. Cholecystectomy noted. No focal lesionsare seen in the liver or in the spleen. Colon bile duct is slightlydilated, measuring 7 mm. Minimal dilatation of the central intrahepaticducts noted. Peritoneum: ?No free air or free fluid. No lymphadenopathy. Pancreas and Adrenals: ?Unremarkable pancreas and adrenal glands. Kidneys and Ureters: ?No visible calculi in the renal collecting systems. No hydroureter or hydronephrosis. 14 mm cyst noted in the medial cortexnear the hilum of the right kidney. Vessels: Mild atherosclerosis of aorta and iliac arteries. No abdominalaortic aneurysm. Retroperitoneum: No abnormal fluid or lymphadenopathy. Bowel: Stomach, duodenum and proximal jejunal loops are distended withfluid and air. Jejunal loops are dilated up to 5 cm. Yearly loops are 1 cmor smaller in size. Gas and fecal material noted throughout the largebowel. Normal appendix is visualized. Mild diverticulosis of the sigmoidand descending colon noted without any acute changes of diverticulitis. Bladder and Reproductive Organs: S/P hysterectomy. No gross pathology inpoorly distended unopacified urinary bladder. Bones: No aggressive bone lesions. Old trauma to lower plates of lowerthoracic vertebral bodies noted. No signs of AVN in the femoral heads. Soft tissues: Small 2 cm fat-containing umbilical hernia. CONCLUSION:1. Moderate grade small bowel obstruction. Obstruction is probably in thedistal jejunum, however, exact transition point is not identified. Etiologycould be adhesions along the anterior abdominal wall from prior surgery.Stomach, duodenum and proximal jejunal loops are moderately distended withair and fluid.2. S/P cholecystectomy and hysterectomy.3. Focal congestion in the posterior medial right lower lung. Developinginfiltrate cannot be excluded. [facility], Radiant Results Inft User - 12/25/2019 2:08 PM CDTCT Abdomen and Pelvis with intravenous contrast.CLINICALHISTORY: Abdominal generalized pain with nausea and vomiting.DOSE: Up-to-date CT equipment and radiation dose reduction techniques wereemployed. CTDIvol: 8.78 mGy. DLP: 437 mGy-cm.TECHNIQUE : Contiguous axial imaging from the level of the lung basesthrough the pubic symphysis were performed after the uncomplicatedadministration of Omnipaque contrast material. Coronal and sagittalreconstructions wereobtained. Auto mA and/or iterative reconstruction wereused to reduce radiation dose.FINDINGS: Lowerlungs: Focal congestion with possibly developing pneumonia noted inthe posteromedial right lower lung. No pleural effusion or pericardialeffusion. No hiatal herniaLiver, Gallbladder and Spleen: Liver is 15.7 cm in length and spleenmeasures approximately 9.5 x 4 cm. Cholecystectomy noted. No focal lesio nsare seen in the liver or in the spleen. Colon bile duct is slightlydilated, measuring 7 mm. Minimal dilatation of the central intrahepaticducts noted.Peritoneum: No free air or free fluid. No lymphadenopathy.Pancreas and Adrenals: Unremarkable pancreas and adrenal glands.Kidneys and Ureters: No vi sible calculi in the renal collecting systems. No hydroureter or hydronephrosis. 14 mm cyst noted inthe medial cortexnear the hilum of the right kidney. Vessels: Mild atherosclerosis of aorta and iliac arteries. No abdominalaortic aneurysm.Retroperitoneum: No abnormal fluid or lymphadenopathy.Bowel: Stomach, duodenum and proximal jejunal loops are distended withfluid and air. Jejunal loops are dilated up to 5 cm. Yearly loops are 1 cmor smaller in size. Gas and fecal material noted throughout the largebowel. Normal appendix is visualized. Mild diverticulosis of the sigmoidand descending colon noted without any acute changes of diverticulitis.Bladder and Reproductive Organs: S/P hysterectomy. No gross pathology inpoorly distended unopacified urinary bladder.Bones: No aggressive bone lesions. Old trauma to lower plates of lowerthoracic vertebral bodies noted. No signs of AVN in the femoral heads.Soft tissues: Small 2 cm fat- containing umbilical hernia.CONCLUSION:1. Moderate grade small bowel obst ruction. Obstruction is probably in thedistal jejunum, however, exact transition point is not identified. Etiologycould be adhesions along the anterior abdominal wall from prior surgery.Stomach, duodenum and proximal jejunal loops are moderately distended withair and fluid.2. S/P cholecystectomy and hy sterectomy.3. Focal congestion in the posterior medial right lower lung. Developinginfiltrate cannotbe excluded.[facility] Troponin [id number] 18:44:00 Test Item Value Reference Range Interpretation Comments TROPONIN I (test 0.004 ng/mL See_Comment [Automated code = 2498027828) message] The system which generated this result transmitted reference range : <=0.034. The reference range was not used to interpret this result as normal/abnormal . AURELIA (test code = Equal or Less than AURELIA) 0.034 ng/ml---Normal ?Note: Cardiac troponin begins to rise 3-4 hours after the onset of ischemia. Repeat in 4-6 hours if the sample was drawn within 3-4 hours of the onset of the symptom and found normal. Between 0.035 and 0.120 ng/mL--- Borderline. Questionable myocardial injury or necrosis ? ?Note: Serial measurement may be necessary to confirm or exclude the diagnosis of myocardial injury or necrosis; Clinical correlation (symptoms, EKGs, imaging studies, and others) required; Repeat in 4-6 hours if clinically indicated. ? Equal or Higher than 0.121 ng/mL---Abnormal. Myocardial Injury or Necrosis Likely ? Biotin has been reported to cause a negative bias, interpret results relative to patient's use of biotin. ? Lab Interpretation Normal (test code = 71497-3) [facility] [id number] 18:40:00 Test Item Value Reference Range Interpretation Comments LIPASE (test code = 3046982993) <10 0-220 Lab Interpretation (test code = Normal 13154-6) [facility]. METABOLIC PANEL ([id number])2019-12-25 18:32:00 Test Item Value Reference Range Interpretation Comments NA (test code = 143 mmol/L 135-145 7485914713) K (test code = 4.0 mmol/L 3.5-5 6131796142) CL (test code = 101 mmol/L 98-108 4553751307) CO2 TOTAL (test code = 30 mmol/L 23-31 5344199004) AGAP (test code = 2-16 2493450973) BUN (test code = 24 mg/dL 7-23 H 5076771408) GLUCOSE (test code = 209 mg/dL 70-110 H 8785350850) CREATININE (test code = 0.72 mg/dL 0.5-1.04 9136663280) TOTAL BILI (test code = 0.8 mg/dL 0.1-1.5 3434245821) CALCIUM (test code = 9.5 mg/dL 8.6-10.6 2266909131) T PROTEIN (test code = 8.4 g/dL 6.3-8.2 H 8375244466) ALBUMIN (test code = 5.1 g/dL 3.5-5 H 1162664868) ALK PHOS (test code = 88 U/L 34-122 2428631430) ALTv (test code = 13 U/L 5-35 1742-6) AST(SGOT) (test code = 24 U/L 13-40 4643447451) eGFR Calculation mL/min/1.73m2 (Non-) (test code = 0272592154) eGFR Calculation mL/min/1.73m2 () (test code = 3234896400) AURELIA (test code = AURELIA) Association of Glomerular Filtration Rate (GFR) and Staging of Kidney Disease* + --+ --+ ------+| GFR (mL/min/1.73 m2) ?| With Kidney Damage ?| ?Without Kidney Damage+ --------+ --------+ +| ?>90 ?| ?Stage one ?| ? Normal ?+ ---+ ---+ -------+| ?60-89 ?| ?Stage two ?| ? Decreased GFR ? + --+ --+ ------+| ?30-59 ?| ?Stage three ?| ? Stage three ? + --+ --+ ------+| ?15-29 ?| ?Stage four ? | ? Stage four ?+ ---+ ---+ -------+| ?<15 (or dialysis) ? ?| ?Stage five ? | ? Stage five ?+ ---+ ---+ -------+ *Each stage assumes the associated GFR level has been in effect for at least three months. ?Stages 1 to 5, with or without kidney disease, indicate chronic kidney disease. Notes: Determination of stages one and two (with eGFR >59mL/min/1.73 m2) requires estimation of kidney damage for at least three months as defined by structural or functional abnormalities of the kidney, manifested by either:Pathological abnormalities or Markers of kidney damage (including abnormalities in the composition of the blood or urine or abnormalities in imaging tests). Lab Interpretation Abnormal (test code = 33896-8) [facility]2020-[facility]-10 16:01:00 Test Item Value Reference Range Interpretation Comments APPEARANCE (test code = Clear Clear 7769610856) COLOR (test code = Yellow Yellow 1966938561) PH (test code = 4.8-8.0 7673340178) SP GRAVITY (test code = 1.003-1.030 3892931998) GLU U QUAL (test code = Normal Normal 1746886953) BLOOD (test code = Negative Negative 5451666357) KETONES (test code = Negative Negative 4076828547) PROTEIN (test code = Negative Negative 2887-8) UROBILIN (test code = Normal Normal 0607205604) BILIRUBIN (test code = Negative Negative 1136970933) NITRITE (test code = Negative Negative 8765948593) LEUK SAMUEL (test code = 250/uL Negative A 2934661063) RBC/HPF (test code = See_Comment [Autom ated message] 5448155807) The system [employer] generated this result transmitted ref erence range: 0 - 3 HP F. The reference range was not used to int erpret this result as normal/abnormal . WBC/HPF (test code = See_Comment H [Autom ated message] 9617757639) The system [employer] generated this result transmitted ref erence range: 0 - 5 HP F. The reference range was not used to int erpret this result as normal/abnormal . BACTERIA (test code = Few Negative A 7497685855) SQ EPITH (test code = HPF 0735390429) Lab Interpretation (test Abnormal code = 71722-7) [facility] METABOLIC PANEL ([id number])2019-12-24 15:51:00 Test Item Value Reference Range Interpretation Comments NA (test code = 142 mmol/L 135-145 0669860171) K (test code = 4.3 mmol/L 3.5-5 8381950136) CL (test code = 104 mmol/L 98-108 1417823817) CO2 TOTAL (test code = 31 mmol/L 23-31 0849275625) AGAP (test code = 2-16 0421915822) BUN (test code = 14 mg/dL 7-23 1888751773) GLUCOSE (test code = 98 mg/dL 70-110 2714935666) CREATININE (test code 0.64 mg/dL 0.5-1.04 = 0036417845) TOTAL BILI (test code 0.3 mg/dL 0.1-1.1 = 9027270327) CALCIUM (test code = 10.1 mg/dL 8.6-10.6 8360537622) T PROTEIN (test code = 7.7 g/dL 6.3-8.2 2854266666) ALBUMIN (test code = 4.7 g/dL 3.5-5 4007440389) ALK PHOS (test code = 100 U/L 34-122 0498565956) ALTv (test code = 10 U/L 5-35 1742-6) AST(SGOT) (test code = 21 U/L 13-40 8142061497) eGFR Calculation mL/min/1.73m2 (Non-) (test code = 6062419916) eGFR Calculation mL/min/1.73m2 () (test code = 0694341389) AURELIA (test code = AURELIA) Association of Glomerular Filtration Rate (GFR) and Staging of Kidney Disease* + -+ + ---+| GFR (mL/min/1.73 m2) ?| With Kidney Damage ?| ?Without Kidney Damage+ -------+ ------+ ---------+| ?>90 ?| ?Stage one ?| ? Normal ?+ --+ -+ ----+| ?60-89 ?| ?Stage two ?| ? Decreased GFR ? + -+ + ---+| ?30-59 ?| ?Stage three ?| ? Stage three ? + -+ + ---+| ?15-29 ?| ?Stage four ? | ? Stage four ?+ --+ -+ ----+| ?<15 (or dialysis) ? ?| ?Stage five ? | ? Stage five ?+ --+ -+ ----+ *Each stage assumes the associated GFR level has been in effect for at least three months. ?Stages 1 to 5, with or without kidney disease, indicate chronic kidney disease. Notes: Determination of stages one and two (with eGFR >59mL/min/1.73 m2) requires estimation of kidney damage for at least three months as defined by structural or functional abnormalities of the kidney, manifested by either:Pathological abnormalities or Markers of kidney damage (including abnormalities in the composition of the blood or urine or abnormalities in imaging tests). [facility] [id number] 15:43:[address] HEAD WO CONTRAST HISTORY: Female 69 years Neuro deficit(s), subacute COMPARISON: CT head dated 06/15/2017 TECHNIQUE: Routine CT head without contrast FINDINGS: The ventricles and cerebral sulci are normal in caliber and configuration.No hydrocephalus, midline shift or pathological extra-axial fluidcollection is present. The basal cisterns are unremarkable. No acute intracranial hemorrhage or mass effect is present. The uribe-whitematter differentiation is preserved. No parenchymal attenuation abnormalityis present. The calvarium and skull base are unremarkable. The mastoid air cells andvisualized paranasal air sinuses are clear. [facility], Radiant Results Inft User - 12/24/2019 10:44 AM CDTCT HEAD WO CONTRASTHISTORY: Female 69 years Neuro deficit(s), subacute COMPARISON: CT head dated06/15/2017TECHNIQUE: Routine CT head without contrastFINDINGS:The ventricles and cerebral sulci are normal in caliber and configuration.No hydrocephalus, midline shift or pathological extra- axial fluidcollection is present. The basal cisterns are unremarkable.No acute intracranial hemorrhage or mass effect is present. The uribe-whitematter differentiation is preserved. No parenchymal attenuation abnormalityis present.The calvarium and skull base are unremarkable. The mastoid air cells andvisualized paranasal air sinuses are clear.IMPRESSIONNormal CT headUnHCA [facility] Healthcare KingwoodCBC WITH [id number] 15:38:00 Test Item Value Reference Range Interpretation Comments WBC (test code = See_Comment [Automated message] 6690-2) The system [employer] generated this result transmitted ref erence range: 4.30 - 1 1.10 10*3/?L. The re ference range was not u sed to interpret this result as normal/abnor mal. RBC (test code = See_Comment [Automated message] 789-8) The system [employer] generated this result transmitted ref erence range: 3.93 - 5 .25 10*6/?L. The re ference range was not u sed to interpret this result as normal/abnor mal. HGB (test code = 13.4 g/dL 11.6-15 718-7) HCT (test code = 41.6 % 35.7-45.2 4544-3) MCV (test code = 90.2 fL 80.6-95.5 787-2) MCH (test code = 29.1 pg 25.9-32.8 785-6) MCHC (test code = 32.2 g/dL 31.6-35.1 786-4) RDW-SD (test code 43.3 fL 39-49.9 = 58546-3) RDW-CV (test code 13.1 % 12-15.5 = 788-0) PLT (test code = See_Comment [Automated message] 777-3) The system [employer] generated this result transmitted ref erence range: 166 - 35 8 10*3/?L. The re ference range was not u sed to interpret this result as normal/abnor mal. MPV (test code = 10.0 fL 9.5-12.9 70105-6) NRBC/100 WBC (test See_Comment [Automat ed message] code = 2271266151) The syste m which generated this result transmitted ref erence range: 0.0 - 10 .0 /100 WBCs. The refer ence range was not u sed to interpret this result as normal/abnor mal. NRBC x10^3 (test <0.01 See_Comment [Automated message] code = 5272737517) The syste m which generated this result transmitted ref erence range: 10*3/?L. The reference range was not used to interpr et this result as normal/abnormal . GRAN MAT (NEUT) % 56.9 % (test code = 770-8) IMM GRAN % (test 0.40 % code = 0343705242) LYMPH % (test code 31.4 % = 736-9) MONO % (test code 7.0 % = 5905-5) EOS % (test code = 3.7 % 713-8) BASO % (test code 0.6 % = 706-2) GRAN MAT 5.61 10*3/uL 1.88-7.09 x10^3(ANC) (test code = 4187363360) IMM GRAN x10^3 0.04 10*3/uL 0-0.06 (test code = 2489077955) LYMPH x10^3 (test 3.10 10*3/uL 1.32-3.29 code = 731-0) MONO x10^3 (test 0.69 10*3/uL 0.33-0.92 code = 742-7) EOS x10^3 (test 0.36 10*3/uL 0.03-0.39 code = 711-2) BASO x10^3 (test 0.06 10*3/uL 0.01-0.07 code = 704-7) [facility]"
[2021-09-12] MEDS ORDERED: ONDANSETRON 4 MG/2 ML VIAL ONE (00:11)
[2021-09-12] MEDS ORDERED: MORPHINE 2 MG/ML SYR ONE (00:11)
[2021-09-12 00:58] LABS: Absolute Lymphocytes (CBC) 2.2 K/uL (0.7-4.9); Basophils % 0.5 % (0-1.3); Hematocrit 35.9 % (36.0-45.0); MPV 7.6 fL (7.6-11.3); RBC Red Blood Cell Count 3.94 M/uL (3.86-4.86)
[2021-09-12 01:00] LABS: Protime INR 0.95
[2021-09-12 01:24] LABS: ALT/SGPT 22 U/L (12-78); AST/SGOT 17 U/L (15-37); Albumin 3.3 g/dL (3.4-5.0); Alkaline Phosphatase 96 U/L (45-117); BUN Blood Urea Nitrogen 10 mg/dL (7-18); Bicarbonate 28 mmol/L (21-32); Bilirubin Direct < 0.1 mg/dL (0-0.2); Bilirubin Total 0.2 mg/dL (0.2-1.0); Glucose Level 115 mg/dL (74-106); Potassium 3.6 mmol/L (3.5-5.1); Protein, Total 7.2 g/dL (6.4-8.2); Sodium Level 144 mmol/L (136-145)
--- NOTE | 2021-09-12 02:04 | EDPHYS ---
Physician Documentation [facility] Name: Gloria Hancock Age: 71 yrs Sex: Female : 1950 Arrival Date: 09/11/2021 Time: 22:26 Bed 20 Private MD: ED Physician Thony Olsen HPI: 09/11 23:55 This 71 yrs old Female presents to ER via Wheelchair with complaints of Fall Injury. mh7 23:55 Details of fall: The patient fell from an upright position, while walking, and struck mh7 wood tory. Onset: The symptoms/episode began/occurred today, at 02:00. Associated injuries: The patient sustained injury to the head, contusion, pain, injury to the low back, pain, Left shoulder, painful injury, Left hip, left ankle, painful injury. Severity of symptoms: At their worst the symptoms were moderate, earlier today, in the emergency department the symptoms have improved, moderately. 23:55 Patient states that she tripped and fell at home over her dog's bowl this morning and mh7 hit her head. She also complains of left shoulder pain, left hip pain, left ankle pain. She is not sure if she had LOC but remembers all the details of falling. She denies any any symptoms prior to falling including headache, chest pain, abdominal pain, shortness of breath, nausea, vomiting, dizziness, numbness/tingling, or weakness.. Historical: - Allergies: 22:39 No Known Allergies; ss - PMHx: 22:39 Chronic pain; ss 22:40 Depressive disorder; ss - Immunization history:: Client reports receiving the 2nd dose of the Covid vaccine. - Social history:: Smoking status: Patient reports the use of cigarette tobacco products, smokes one pack cigarettes per day. ROS: 23:55 Constitutional: Negative for fever, chills, and weight loss, Eyes: Negative for injury, mh7 pain, redness, and discharge, ENT: Negative for injury, pain, and discharge, Cardiovascular: Negative for chest pain, palpitations, and edema, Respiratory: Negative for shortness of breath, cough, wheezing, and pleuritic chest pain, Abdomen/GI: Negative for abdominal pain, nausea, vomiting, diarrhea, and constipation, : Negative for injury, bleeding, discharge, and swelling, Skin: Negative for injury, rash, and discoloration, Psych: Negative for depression, anxiety, suicide ideation, homicidal ideation, and hallucinations, Allergy/Immunology: Negative for hives, rash, and allergies, Endocrine: Negative for neck swelling, polydipsia, polyuria, polyphagia, and marked weight changes, Hematologic/Lymphatic: Negative for swollen nodes, abnormal bleeding, and unusual bruising. Exam: 23:55 Constitutional: This is a well developed, well nourished patient who is awake, alert, mh7 and in no acute distress. Head/Face: Normocephalic, atraumatic. Eyes: Pupils equal round and reactive to light, extra-ocular motions intact. Lids and lashes normal. Conjunctiva and sclera are non-icteric and not injected. Cornea within normal limits. Periorbital areas with no swelling, redness, or edema. ENT: Nares patent. No nasal discharge, no septal abnormalities noted. Tympanic membranes are normal and external auditory canals are clear. Oropharynx with no redness, swelling, or masses, exudates, or evidence of obstruction, uvula midline. Mucous membranes moist. Neck: Trachea midline, no thyromegaly or masses palpated, and no cervical lymphadenopathy. Supple, full range of motion without nuchal rigidity, or vertebral point tenderness. No Meningismus. Chest/axilla: Normal chest wall appearance and motion. Nontender with no deformity. No lesions are appreciated. Cardiovascular: Regular rate and rhythm with a normal S1 and S2. No gallops, murmurs, or rubs. Normal PMI, no JVD. No pulse deficits. Respiratory: Lungs have equal breath sounds bilaterally, clear to auscultation and percussion. No rales, rhonchi or wheezes noted. No increased work of breathing, no retractions or nasal flaring. Abdomen/GI: Soft, non-tender, with normal bowel sounds. No distension or tympany. No guarding or rebound. No evidence of tenderness throughout. 23:55 Skin: Warm, dry with normal turgor. Normal color with no rashes, no lesions, and no evidence of cellulitis. 23:55 Neuro: Awake and alert, GCS 15, oriented to person, place, time, and situation. Cranial nerves II-XII grossly intact. Motor strength 5/5 in all extremities. Sensory grossly intact. Cerebellar exam normal. Normal gait. Psych: Awake, alert, with orientation to person, place and time. Behavior, mood, and affect are within normal limits. 23:55 Back: pain, that is mild, of the lumbar area, ROM is painful, with all movement, normal spinal alignment noted, CVA tenderness, is absent, vertebral tenderness, is not appreciated, muscle spasm, is not present. 23:55 Musculoskeletal/extremity: Extremities: noted in the Left hip: tenderness, noted in the Left shoulder: tenderness, noted in the Left ankle: tenderness, ROM: limited active range of motion due to pain, in the Left hip, limited passive range of motion due to pain, in the Left hip, Circulation is intact in all extremities. Sensation intact. Compartment Syndrome exam of affected extremity: is normal. no numbness, no tingling, no sensation deficit, no palor, no weak pulses, Joints: the left hip displays painful range of motion, tenderness, Weight bearing: able to fully bear weight, Tendon exam: specific tendon testing normal through active and passive range of motion Vital Signs: 22:36 BP 160 / 78; Pulse 77; Resp 18; Temp 98.2(TE); Pulse Ox 100% on R/A; Weight 71.67 kg; ss Height 5 ft. 6 in. (167.64 cm); Pain 10/10; 23:18 BP 175 / 96; Pulse 77; Resp 16; Temp 98.9; Pulse Ox 98% on R/A; Pain 9/10; fu 09/12 01:00 BP 170 / 72; Pulse 77; Resp 16; Pulse Ox 100% on R/A; Pain 7/10; fu 09/11 22:36 Body Mass Index 25.50 (71.67 kg, 167.64 cm) ss MDM: 01:59 Differential diagnosis: abrasion, closed head injury, contusion, fracture, sprain, mh7 strain. Data reviewed: vital signs, nurses notes, lab test result(s), CBC, electrolytes, radiologic studies, plain films. Data interpreted: Pulse oximetry: on room air is 100 %. Interpretation: normal. Response to treatment: the patient's symptoms have markedly improved after treatment. Refusal of service: The patient/guardian displays adequate decision making capability and despite a detailed discussion of alternatives, benefits, risks, and consequences refuses: Refused to wait for results of CT scans and signed out AGAINST MEDICAL ADVICE.. 02:03 Patient medically screened. [facility] 02:45 ED course: Well-appearing, no acute distress, vital signs stable, no focal neurological [facility] deficits. Awake, alert, oriented x4 and ambulating without difficulty. Patient declined to wait for results of CT scans and wants to leave AMA. Discussed possibility of permanent disability and/or and serious condition is present and goes untreated. Patient verbalized that she understood this information is presented. She knows she can return to ED if worsening symptoms or other urgent concerns.. 09/11 23:45 Order name: Basic Metabolic Panel [facility] 09/11 23:45 Order name: CBC with Diff; Complete Time: : [facility] 09/11 23:45 Order name: Type And Screen; Complete Time: :44 [facility] 09/11 23:45 Order name: LFT's; Complete Time: [facility] 09/11 23:45 Order name: Protime (+inr); Complete Time: [facility] 09/11 23:45 Order name: Ptt, Activated; Complete Time: [facility] 09/11 23:45 Order name: CT Traumagram (Head C Spine CAP wo con) [facility] 09/11 23:45 Order name: Shoulder Left (2 View) XRAY [facility] 09/11 23:45 Order name: Ankle Left 3 View XRAY [facility] 09/11 23:46 Order name: Basic Metabolic Panel; Complete Time: 31 [facility] 09/12 00:09 Order name: Hip Left 2 View XRAY [facility] 09/11 23:45 Order name: Labs collected and sent; Complete Time: 00:41 [facility] Administered Medications: 00:40 Drug: morphine 2 mg Route: IVP; Site: left forearm; fu 01:35 Follow up: Response: No adverse reaction fu 00:40 Drug: Zofran (Ondansetron) 4 mg Route: IVP; Site: left forearm; fu 01:35 Follow up: Response: No adverse reaction fu Disposition Summary: 09/12/21 02:03 Left Against Medical Advice Location: Home [facility] Problem: new [facility] Symptoms: have improved [facility] Condition: Stable [facility] Diagnosis - Fall due to bumping against object mh7 - Left shoulder pain, left hip pain, low back pain, left ankle pain [facility] Followup: mh7 - With: Private Physician - When: 1 - 2 days - Reason: Worsening of condition, Recheck today's complaints, Continuance of care, Re-evaluation by your physician Discharge Instructions: - Discharge Summary Sheet mh7 - Acute Back Pain, Adult mh7 - Shoulder Pain, [id number] mh7 - Fall Prevention in the Home, Adult, [id number] mh7 - Hip Pain mh7 - Ankle Pain [facility] Signatures: Dispatcher [employer] EDGuera Hidalgo RN RN Fidel Gauthier RN RN fu Holmes, Maurice, MD MD [facility] Corrections: (The following items were deleted from the chart) 00:33 00:09 Pelvis+RAD.RAD.BRZ ordered. EDMS EDMS
--- NOTE | 2021-09-12 02:04 | ER ---
Nurse's Notes [facility] Name: Gloria Hancock Age: 71 yrs Sex: Female : 1950 Arrival Date: 09/11/2021 Time: 22:26 Bed 20 Private MD: Diagnosis: Fall due to bumping against object;Left shoulder pain, left hip pain, low back pain, left ankle pain Presentation: 09/11 22:36 Chief complaint: Patient states: Tripped and fell after coming back from the bathroom ss at 0200 this morning. Pt c/o pain to neck, L shoulder, L hip and L ankle. Coronavirus screen: Client denies travel out of the [place] in the last 14 days. Ebola Screen: Patient denies exposure to infectious person. Patient denies travel to an Ebola-affected area in the 21 days before illness onset. Initial Sepsis Screen: Does the patient meet any 2 criteria? No. Patient's initial sepsis screen is negative. Does the patient have a suspected source of infection? No. Patient's initial sepsis screen is negative. Risk Assessment: Do you want to hurt yourself or someone else? Patient reports no desire to harm self or others. Onset of symptoms was September 11, 2021 at 02:00. 22:36 Method Of Arrival: Wheelchair ss 22:36 Acuity: MONTSE 3 ss Historical: - Allergies: 22:39 No Known Allergies; ss - PMHx: 22:39 Chronic pain; ss 22:40 Depressive disorder; ss - Immunization history:: Client reports receiving the 2nd dose of the Covid vaccine. - Social history:: Smoking status: Patient reports the use of cigarette tobacco products, smokes one pack cigarettes per day. Screenin:39 Abuse screen: Denies threats or abuse. Denies injuries from another. ss 09/12 00:41 Nutritional screening: No deficits noted. Tuberculosis screening: No symptoms or risk fu factors identified. Fall Risk None identified. Assessment: 09/11 22:39 Reassessment: C collar placed in triage. ss 23:15 General: Appears in no apparent distress. Behavior is calm, cooperative, appropriate fu for age. Pain: Complains of pain in left hip, left leg, back Pain does not radiate. Pain currently is 9 out of 10 on a pain scale. Quality of pain is described as sharp, Aggravated by movement. Neuro: Level of Consciousness is awake, alert, obeys commands, Oriented to person, place, time, situation, Guide Escort are equal bilaterally Moves all extremities. Speech is normal. Cardiovascular: Denies chest pain, nausea, vomiting. Respiratory: Respiratory effort is even, unlabored, Respiratory pattern is regular. GI: No signs and/or symptoms were reported involving the gastrointestinal system. Derm: Skin is intact, Skin is pink, warm \T\ dry. Musculoskeletal: Range of motion: limited in left leg. 09/12 00:42 Reassessment: Patient and/or family updated on plan of care and expected duration. Pain fu level reassessed. Patient is alert, oriented x 3, equal unlabored respirations, skin warm/dry/pink. Vital Signs: 09/11 22:36 BP 160 / 78; Pulse 77; Resp 18; Temp 98.2(TE); Pulse Ox 100% on R/A; Weight 71.67 kg; Height 5 ft. 6 in. (167.64 cm); Pain 10/10; 23:18 BP 175 / 96; Pulse 77; Resp 16; Temp 98.9; Pulse Ox 98% on R/A; Pain 9/10; fu 09/12 01:00 BP 170 / 72; Pulse 77; Resp 16; Pulse Ox 100% on R/A; Pain 7/10; fu 09/11 22:36 Body Mass Index 25.50 (71.67 kg, 167.64 cm) ED Course: 09/11 22:26 Patient arrived in ED. ja2 22:39 Triage completed. ss 22:40 Arm band placed on right wrist. ss 23:08 Fidel Gauthier, FIDELIA is Primary Nurse. fu 23:24 Thony Olsen MD is Attending Physician. mh7 09/12 00:10 Inserted saline lock: 22 gauge in left forearm, using aseptic technique. Blood fu collected. 00:33 Shoulder Left (2 View) XRAY In Process Unspecified. EDMS 00:34 Ankle Left 3 View XRAY In Process Unspecified. EDMS 00:34 Hip Left 2 View XRAY In Process Unspecified. EDMS 00:41 Basic Metabolic Panel Sent. fu 00:42 Patient has correct armband on for positive identification. Bed in low position. Call fu light in reach. Side rails up X2. Pulse ox on. NIBP on. 01:00 No provider procedures requiring assistance completed. fu 01:22 CT Traumagram (Head C Spine CAP wo con) In Process Unspecified. EDMS 02:30 IV discontinued, bleeding controlled, Pressure dressing applied. fu Administered Medications: 00:40 Drug: morphine 2 mg Route: IVP; Site: left forearm; fu 01:35 Follow up: Response: No adverse reaction fu 00:40 Drug: Zofran (Ondansetron) 4 mg Route: IVP; Site: left forearm; fu 01:35 Follow up: Response: No adverse reaction fu Outcome: 02:35 AMA AMA form signed fu 02:40 Patient left the ED. fu Signatures: Dispatcher [employer] EDMS Guera Goodrich RN RN Fidel Gauthier RN RN fu Holmes, Maurice, MD MD mh7 Earnestine Neal
[2021-09-12 02:50] VITALS: TEMP 98.9
[2021-09-12 02:52] VITALS: BP 170/72; O2SAT 100
--- NOTE | 2021-09-12 13:22 | RAD REPORT ---
EXAM DESCRIPTION: RAD - Shoulder Left 2 View - 09/12/2021 12:33 am CLINICAL HISTORY: trauma Fall, trauma, pain COMPARISON: No comparisons FINDINGS: Diffuse osteopenia is seen. Arthritic changes affect the left shoulder. No acute fracture or dislocation seen.
--- NOTE | 2021-09-12 13:23 | RAD REPORT ---
EXAM DESCRIPTION: RAD - Ankle Left 3 View - 09/12/2021 12:33 am CLINICAL HISTORY: trauma COMPARISON: No comparisons FINDINGS: Diffuse osteopenia is present. Moderate soft tissue swelling about the ankle. Moderate tib iotalar arthritic changes. Subtle bony fragmentation distal fibula could be related to avulsion fract ure, suggest correlation with point tenderness. . There is evidence of prior oblique fracture of the distal fibula noted.
--- NOTE | 2021-09-12 13:24 | RAD REPORT ---
EXAM DESCRIPTION: RAD - Hip Left 2 View - 09/12/2021 12:34 am CLINICAL HISTORY: trauma COMPARISON: No comparisons FINDINGS: Moderate arthritic changes affect both hips. No acute fracture, dislocation or AVN.
--- NOTE | 2021-09-13 14:13 | RAD REPORT ---
EXAM DESCRIPTION: Head C Spine Cap Wo Con CLINICAL HISTORY: Trauma COMPARISON: None Available. TECHNIQUE: Multiple helical axial tomographic images were obtained of the head, cervical spine, ches t, abdomen, and pelvis without intravenous contrast. This exam was performed according to our [facility] ental dose-optimization program, which includes automated exposure control, adjustment of the mA and/ or kV according to patient size and/or use of iterative reconstruction technique. FINDINGS: Head and cervical spine: There is no acute intracranial hemorrhage. No mass. No midline shift. No ventriculomegaly. Hamlin-white matter differentiation is maintained. Paranasal sinuses are clear. Mastoid air cells and middle ear spaces are clear. Changes of lens repla cement noted. No acute calvarial fracture. No evidence of an acute fracture of the cervical spine. Vertebral body heights appear maintained. Mul tilevel disc space narrowing, osteophyte formation, and sclerosis is demonstrated with associated kit ral foraminal narrowing. Surrounding soft tissues are unremarkable. Chest: Thyroid gland: unremarkable. Axilla: unremarkable. Aorta: Mild aortic atherosclerosis is present. No evidence of aortic aneurysm. Mediastinum: Unremarkable. No adenopathy. Heart: Heart is normal in size. Lungs/airways: No consolidation. Airways are patent. Bilateral apical pulmonary scarring noted. Mild- to-moderate primarily centrilobular emphysematous changes noted. There are localized areas of reticul ar markings in both lower lobes posteriorly suggestive versus scarring. There are few small groundgla ss opacities in the right middle lobe. There is a 3 mm nodule in the right lower lobe medially (serie s 403, image 132). Pleural spaces: No significant pleural effusion. No pneumothorax. Osseous: No acute fracture. Degenerative changes of the thoracic spine noted. Soft tissues: Unremarkable. Abdomen and pelvis: Gallbladder/biliary: Gallbladder is not well-seen. No significant biliary ductal dilatation. Pancreas: Fatty changes noted. Spleen: Unremarkable. Adrenals: Unremarkable. Kidneys and ureters: No evidence of renal or ureteral stones. No hydronephrosis. Bladder: Unremarkable. Pelvic organs: Post hysterectomy changes demonstrated. Bowel: No evidence of bowel obstruction. No bowel wall thickening. Appendix is not well-seen. Peritoneum: No free air. No significant free fluid. Lymph nodes: Unremarkable. Vasculature: Aortoiliac atherosclerosis is present. Soft tissues: Unremarkable. Bones: No acute fracture. Degenerative changes of the lumbar spine noted. IMPRESSION: 1. No acute intracranial process. 2. No evidence of an acute fracture of the cervical spine. Cervical spine degenerative changes. 3. No evidence of acute traumatic injury in the chest, abdomen, or pelvis. 4. Right lower lobe 3 mm nodule. For a high-risk patient, optional follow-up chest CT in one year i s recommended using Fleischner Society criteria. 5. Few small groundglass opacities in the right middle lobe which may be related to an infectious o r inflammatory process. 6. Emphysematous changes. Lectronically signed by: Zaire Craig MD 09/12/2021 2:24 AM ENGINE PILOT Due to temporary technical issues with the PACS/Fluency reporting system, reports are being signed by the in house radiologist without review as a courtesy to ensure prompt reporting. The interpreting r adiologist is fully responsible for the content of the report.
== END 2021-09-12 02:40 | disposition left against medical advice (07) ==
LOC: ER 22:21
DX: M25.512 Pain in left shoulder (principal); M25.552 Pain in left hip; M25.572 Pain in left ankle and joints of left foot; M54.50 Low back pain, unspecified; W18.09XA Striking against other object with subsequent fall, initial encounter; F17.210 Nicotine dependence, cigarettes, uncomplicated
CPT/HCPCS: 85025; 80048; 36415; 86900; 86850; 85610; 86901; 80076; 85730; 70450; 71250; 72125; 73502; 73030; 73610; 96375; 96374; 99284; J2270; J2405